=== PATIENT | female | born 1945 | race Caucasian/White ===

== ENCOUNTER 2024-02-09 09:54 | Emergency (ER) | payer MEDICARE, OTHER, SELFPAY ==
[2024-02-09] VITALS (8 sets, daily range): BP systolic 103–136; BP diastolic 59–90; BMI 26.3
--- NOTE | 2024-02-09 10:28 | ED.GENMED ---
History of Present Illness
<Simin Stern MD - Last Filed: 02/09/24 14:20>
General
Chief Complaint: Fall
Source: patient
Exam Limitations: none
Time Seen by Provider: 02/09/24 10:03
Nursing documentation reviewed up to this point in time: agreed with
History of Present Illness
History of Present Illness:
The patient is a pleasant 78-year-old female with a past medical history of COPD who reports that she woke up to get milk in the middle of the night and slipped down a steep carpeted staircase. She is unsure how many steps she fell down. Patient
reports that she believes she hit her head and hit her right side. Her was downstairs sleeping and was able to help her get up off the ground. The patient denies nausea and vomiting. She reports mild soreness at the base of her head but
denies any significant headache. She has no vision changes. She denies neck pain. She has had no tingling of the arms and legs. She has been able to walk. Patient complains of moderate pain along her right rib cage. She denies abdominal pain.
Patient also suffered skin tears to the right forearm area. She reports a tetanus shot was given to her about 2 years ago. She denies blood in her urine and stool.
Past History
<Simin Stern MD - Last Filed: 02/09/24 14:20>
Past History
ED Past Medical History: COPD, HTN and Hypercholesterolemia
ED Past Surgical History: Other
Social History
Tobacco: Other
Alcohol: Other
Drug: None
Personal:
Living: with family
Employment: Other
Family History
Family History: Other
Review of Systems
<Simin Stern MD - Last Filed: 02/09/24 14:20>
Review of Systems
Allergies reviewed?: Yes
All Other Systems: ROS reviewed and negative except as documented in HPI and ROS
Constitutional: Reports no symptoms
EENT: Reports no symptoms
Respiratory: Reports no symptoms
Cardiac: Reports chest pain
ABD/GI: Reports no symptoms
: Reports no symptoms
Musculoskeletal: Reports muscle pain
Skin: Reports other
Neurological: Reports no symptoms
Endocrine: Reports no symptoms
Hematologic/Lymphatic: Reports no symptoms
Psychiatric: Reports no symptoms
Phy Exam
<Simin Stern MD - Last Filed: 02/09/24 14:20>
Physical Exam
Physical Exam:
Physical Exam
General: no apparent distress, not acutely ill. Mild confusion this typical scalp area.
Neck: supple. No C-spine tenderness
Heart: s1/s2 regular rate and rhythm, no murmur. equal radial pulses. No vertebral spine tenderness
Lungs: no acute respiratory distress. clear bilaterally. Tenderness along right posterior lateral rib cage area. No sign of ecchymosis or deformity
Abdomen: normal bowel sounds. not tender. no CVAT. Abdomen is soft and nontender throughout, no flank tenderness
Neuro: alert and oriented. no focal neurological deficits
Skin: Skin tears right upper arm and right forearm. Bleeding well-controlled
Psychiatric: well kept. interactive and cooperative
Extremities: No bony tenderness of upper or lower extremities, including right upper extremity
Course
<Simin Stern MD - Last Filed: 02/09/24 14:20>
Orders/Labs/Results
Orders:
Orders
02/09/24 10:26
CT Head W/o Iv Contrast Urgent
Comment:
Reason For Exam: fell down steps
Ribs, Right 3 View W/PA Chest [CR Ribs-right 3 Vw W/pa Chest*] Urgent
Comment:
Reason For Exam: fell down steps, R post-lat lower ribcage pain
02/09/24 10:28
Electrocardiogram (*1) Urgent
Reason for Study: Shortness of Breath
EKG- Treatment ONCE
02/09/24 10:34
Complete Blood Count/With Diff Urgent
Comprehensive Metabolic Panel Urgent
02/09/24 11:46
Morphine Sulfate 4 mg IV NOW STA
02/09/24 11:47
Ondansetron Injectable [Zofran] 4 mg IV NOW STA
02/09/24 11:49
Troponin I Urgent
02/09/24 14:24
Tramadol HCl [Ultram] 50 mg PO NOW STA
02/09/24 16:30
CT Head W/o Iv Contrast Urgent
Comment:
Reason For Exam: fall, repeat
02/09/24 18:05
Acetaminophen [Tylenol] 1,000 mg PO NOW STA
Abnormal Lab Results
02/09/24
10:34
RBC 4.07 L 10^6/uL
(4.20-5.40)
Hct 36.5 L %
(37.0-47.0)
MCH 32.4 H pg
(27.0-31.0)
RDW 11.4 L %
(11.5-14.5)
Abs Immat Gran (auto) 0.1 H 10^3/uL
(0-0.05)
Absolute Neuts (auto) 7.7 H 10^3/uL
(1.4-6.5)
Absolute Monos (auto) 0.7 H 10^3/uL
(0.1-0.6)
Neutrophils % 78.1 H %
(42.2-75.2)
Lymphocytes % 12.8 L %
(20.5-51.1)
Glucose 129 H mg/dl
(70-99)
AST 102 H U/L
(14-36)
ALT 84 H U/L
(0-35)
02/09/24 10:34
02/09/24 10:34
Vital Signs
Initial and Last Documented VS:
Initial Vital Signs
Temp Pulse Resp Pulse Ox
97.7 F 79 16 98
02/09/24 09:55 02/09/24 09:55 02/09/24 09:55 02/09/24 09:55
Last Documented Vital Signs
Temp Pulse Resp BP Pulse Ox
97.7 F 71 16 129/74 98
02/09/24 09:55 02/09/24 18:34 02/09/24 18:34 02/09/24 18:34 02/09/24 18:34
<Jered Angulo, DO - Last Filed: 02/11/24 03:38>
Orders/Labs/Results
Orders:
Orders
02/09/24 10:26
CT Head W/o Iv Contrast Urgent
Comment:
Reason For Exam: fell down steps
Ribs, Right 3 View W/PA Chest [CR Ribs-right 3 Vw W/pa Chest*] Urgent
Comment:
Reason For Exam: fell down steps, R post-lat lower ribcage pain
02/09/24 10:28
Electrocardiogram (*1) Urgent
Reason for Study: Shortness of Breath
EKG- Treatment ONCE
02/09/24 10:34
Complete Blood Count/With Diff Urgent
Comprehensive Metabolic Panel Urgent
02/09/24 11:46
Morphine Sulfate 4 mg IV NOW STA
02/09/24 11:47
Ondansetron Injectable [Zofran] 4 mg IV NOW STA
02/09/24 11:49
Troponin I Urgent
02/09/24 14:24
Tramadol HCl [Ultram] 50 mg PO NOW STA
02/09/24 16:30
CT Head W/o Iv Contrast Urgent
Comment:
Reason For Exam: fall, repeat
02/09/24 18:05
Acetaminophen [Tylenol] 1,000 mg PO NOW STA
Abnormal Lab Results
02/09/24
10:34
RBC 4.07 L 10^6/uL
(4.20-5.40)
Hct 36.5 L %
(37.0-47.0)
MCH 32.4 H pg
(27.0-31.0)
RDW 11.4 L %
(11.5-14.5)
Abs Immat Gran (auto) 0.1 H 10^3/uL
(0-0.05)
Absolute Neuts (auto) 7.7 H 10^3/uL
(1.4-6.5)
Absolute Monos (auto) 0.7 H 10^3/uL
(0.1-0.6)
Neutrophils % 78.1 H %
(42.2-75.2)
Lymphocytes % 12.8 L %
(20.5-51.1)
Glucose 129 H mg/dl
(70-99)
AST 102 H U/L
(14-36)
ALT 84 H U/L
(0-35)
02/09/24 10:34
02/09/24 10:34
Vital Signs
Initial and Last Documented VS:
Initial Vital Signs
Temp Pulse Resp Pulse Ox
97.7 F 79 16 98
02/09/24 09:55 02/09/24 09:55 02/09/24 09:55 02/09/24 09:55
Last Documented Vital Signs
Temp Pulse Resp BP Pulse Ox
97.7 F 71 16 129/74 98
02/09/24 09:55 02/09/24 18:34 02/09/24 18:34 02/09/24 18:34 02/09/24 18:34
<Simin Stern MD - Last Filed: 02/09/24 14:20>
MDM/Problems Addressed
Differential Diagnosis Includes:
Closed head injury, intracranial hematoma, rib fracture, rib contusion
MDM/Problems Addressed:
Patient presents with acute mild scalp tenderness and right rib cage pain after falling down steps
Chronic conditions affecting care:
COPD, hypertension
Acute Exacerbation and/or Progression of Chronic Illness:
Patient is slightly hypertensive, however, there is no sign of heart failure or stroke. Patient's blood pressure may be elevated due to pain.
Acute Exacerbation and/or Progression of Chronic Illness: HTN
<Simin Stern MD - Last Filed: 02/09/24 14:20>
*Radiology
Radiology exam reviewed: preliminary read by ED provider (Chest x-ray and right rib series reviewed by me. No acute disease or fracture seen) and radiology read reviewed
*Pulse Oximetry
Patient hypoxic: no
*EKG
Interpreted by ED Provider?: Yes
Interpretation: abnormal
Comparison EKG: no comparison EKG present
Rate: normal
Rhythm: sinus
Rule: normal axis
Interval: normal interval
QRS Pattern: normal QRS
Ischemia: non-specific ST changes
*[employer] Splitter Operator Interpretation
Rate: normal
Interpretation: normal
Rhythm: sinus
Data Reviewed
Review of Other/Old Records Reveals: Radiology Studies (Chest x-ray reviewed from 02/2023 which shows no acute disease)
Source: patient
<Jered Angulo DO - Last Filed: 02/11/24 03:38>
*Critical Care Note
Total Time (30-74mins, 75-104mins- exclusive of procedures): Not Applicable
<Simin Stern MD - Last Filed: 02/09/24 14:20>
Patient Management
Discussion with other providers: Other (Discussed initial CT head with Dr. Scott from neurosurgery. Recommended that we repeat CT head in 6 hours.)
<Jered Angulo DO - Last Filed: 02/11/24 03:38>
Update Note
Update Note:
6 PM after an ER attending signout pending repeat CAT scan repeat scan noted reviewed with patient, she looks well mild headache which is aching today, I believe she can safely be discharged home, message sent to neurosurgery to review. She is on
no blood thinners, no progression of her bleed
ED Attending Note
<Simin Stern MD - Last Filed: 02/09/24 14:20>
-
Portions of this chart may have been created with voice recognition software.� Occasional wrong word or��sound alike� substitutions may have occurred due to the inherent limitations of voice recognition software.
Discharge Plan
Departure
Patient Disposition: Home (Routine Discharge)
Date of Disposition: 02/09/24
Time of Disposition: 18:09
Patient with high blood pressure during this ER visit?: Yes
Condition: Good
Covid-19: Not Applicable
Discharge Problem:
Contusion of rib on right side
Instructions: Concussion, Adult (DC), Bruised Rib (DC), BLOOD PRESSURE
Prescriptions:
New
tramadol 25 mg tablet
25 mg PO Q6H PRN (Reason: Pain) Qty: 10 0RF
ondansetron 4 mg tablet,disintegrating
4 mg PO TIDPRN PRN (Reason: nausea/vomiting) Qty: 10 0RF
tramadol 25 mg tablet
25 mg PO Q4H PRN (Reason: Pain) Qty: 10 0RF
Referrals:
Mckenna Ronquillo MD [Active] - Next open appointment
Dante Rodriguez MD [Family Provider] -
Activity Restrictions/Additional Instructions:
Please return to the emergency department with any fever or difficulty breathing. Please see your doctor in 2 to 3 days to be rechecked
Interventions
Interventions:
*Risk Screen - Suicide Last Done: 02/09/24 18:35
*General Assessment Last Done: 02/09/24 13:41
*Neglect/Abuse Screening Last Done: 02/09/24 13:41
*ED COVID-19 Vaccine History Last Done: 02/09/24 09:55
*Nursing Disposition Last Done: 02/09/24 18:35
ED-Musculoskeletal Assessment Last Done: 02/09/24 10:20
ED- Neurological Assessment Last Done: 02/09/24 10:20
ED-Skin Assessment Last Done: 02/09/24 10:20
Discharge Date and Time
Discharge Date/Time: 02/09/24 18:36
Print Language: AMHARIC
[2024-02-09 10:43] LABS: % Basophils 0.2 % (0-2); % Eosinophils 1.1 % (0-6); % Immature Granulocytes 0.5 % (0-0.5); % Lymphocytes 12.8 % (20.5-51.1); % Monocytes 7.3 % (1.7-9.3); % Neutrophils 78.1 % (42.2-75.2); Absolute Eosinophils 0.1 10^3/uL (0-0.7); Absolute Immature Granulocytes 0.1 10^3/uL (0-0.05); Absolute Lymphocytes 1.3 10^3/uL (1.2-3.4); Absolute Monocytes 0.7 10^3/uL (0.1-0.6); Absolute Neutrophils 7.7 10^3/uL (1.4-6.5); Hematocrit 36.5 % (37.0-47.0); Hemoglobin 13.2 g/dL (12.0-16.0); Mean Corp Hgb Conc. 36.2 g/dL (33.0-37.0); Mean Corpuscular Hgb 32.4 pg (27.0-31.0); Mean Corpuscular Volume 89.7 fL (81.0-99.0); Mean Platelet Volume 10.1 fL (7.4-10.4); Nucleated Red Blood Cells % 0 %; Platelet Count 283 10^3/uL (130-400); Red Blood Cell Count 4.07 10^6/uL (4.20-5.40); Red Cell Dist. Width 11.4 % (11.5-14.5); White Blood Cell Count 9.9 10^3/uL (4.8-10.8)
[2024-02-09 10:58] LABS: ALT (SGPT) 84 U/L (0-35); AST (SGOT) 102 U/L (14-36); Albumin 4.6 g/dl (3.5-5.0); Alkaline Phosphatase 57 U/L (38-126); Blood Urea Nitrogen 15 mg/dl (7-17); Carbon Dioxide 24 mmol/L (22-30); Chloride 99 mmol/L (98-107); Estimated Creatinine Clearance 57 ml/min; Glucose 129 mg/dl (70-99); Potassium 3.9 mmol/L (3.5-5.1); Sodium 135 mmol/L (135-145); Total Bilirubin 0.9 mg/dl (0.2-1.3); Total Protein 6.7 g/dl (6.3-8.2); eGFR > 60.00
[2024-02-09] MEDS: MORPHINE SULFATE 4 MG IV (11:51)
[2024-02-09] MEDS: ZOFRAN 4 MG IV (11:51)
[2024-02-09 12:18] LABS: Troponin I < 0.012 ng/ml
[2024-02-09] MEDS: ULTRAM 50 MG PO (14:27)
[2024-02-09] MEDS: TYLENOL 1000 MG PO (18:34)
== END 2024-02-09 18:36 | disposition home or self-care (01) ==
LOC: EMR 09:54
PROVIDERS: Emergency Medicine; EMERGENCY PHYSICIAN Emergency Medicine; FAMILY PHYSICIAN Internal Medicine
DX: S00.03XA Contusion of scalp, initial encounter (principal); W10.9XXA Fall (on) (from) unspecified stairs and steps, initial encounter; J44.9 Chronic obstructive pulmonary disease, unspecified; I10 Essential (primary) hypertension; E78.00 Pure hypercholesterolemia, unspecified
CPT/HCPCS: 99284; 96374; 96375; 70450; 71101; 80053; 84484; 85025; 93005

== ENCOUNTER 2024-09-17 10:09 | Inpatient (IN) | payer MEDICARE, OTHER, SELFPAY ==
[2024-09-15 12:15] VITALS: BP 112/79
[2024-09-15 12:49] LABS: % Basophils 0.2 % (0-2); % Eosinophils 0.2 % (0-6); % Immature Granulocytes 0.4 % (0-0.5); % Lymphocytes 4.2 % (20.5-51.1); % Monocytes 4.2 % (1.7-9.3); % Neutrophils 90.8 % (42.2-75.2); Absolute Immature Granulocytes 0.1 10^3/uL (0-0.05); Absolute Lymphocytes 0.6 10^3/uL (1.2-3.4); Absolute Monocytes 0.6 10^3/uL (0.1-0.6); Absolute Neutrophils 12.7 10^3/uL (1.4-6.5); Hemoglobin 14.5 g/dL (12.0-16.0); Mean Corp Hgb Conc. 33.7 g/dL (33.0-37.0); Mean Corpuscular Hgb 32.2 pg (27.0-31.0); Mean Corpuscular Volume 95.3 fL (81.0-99.0); Mean Platelet Volume 10.2 fL (7.4-10.4); Nucleated Red Blood Cells % 0 %; Platelet Count 317 10^3/uL (130-400); Red Blood Cell Count 4.51 10^6/uL (4.20-5.40); Red Cell Dist. Width 11.9 % (11.5-14.5)
[2024-09-15 12:59] LABS: ALT (SGPT) 28 U/L (0-35); AST (SGOT) 28 U/L (14-36); Albumin 4.6 g/dl (3.5-5.0); Alkaline Phosphatase 55 U/L (38-126); Blood Urea Nitrogen 14 mg/dl (7-17); Calcium 10.1 mg/dl (8.4-10.2); Carbon Dioxide 26 mmol/L (22-30); Chloride 101 mmol/L (98-107); Glucose 142 mg/dl (70-99); Lipase 190 U/L (23-300); Potassium 4.1 mmol/L (3.5-5.1); Sodium 138 mmol/L (135-145); Total Bilirubin 0.8 mg/dl (0.2-1.3); Total Protein 6.6 g/dl (6.3-8.2); eGFR > 60.00
[2024-09-15 13:50] VITALS: BP 122/64
--- NOTE | 2024-09-15 14:09 | EDRN ---
Pt reporting increased abdominal pain. [employer] MANAGER Day made aware and patient brought to triage lab for evaluation.
--- NOTE | 2024-09-15 14:10 | ED.GENMED ---
ED Provider Triage
<Portia Garcia INSPECTOR MACHINE CUT GLASS - Last Filed: 09/15/24 14:13>
-
Patient seen by provider in Triage?: Seen in Triage
Attestation: A medical screening examination has been initiated by a qualified medical provider. Based on the assessment performed at this time, it has been determined that an emergent medical condition may exist and the patient has been informed
that further medical evaluation and possible additional diagnostic testing may be needed.
HPI: 79-year-old female with history of HTN, smoker with COPD, diagnosed with RSV 2 weeks ago. Patient states she developed sudden onset of pain across her lower abdomen in the middle the night which woke her up. Pain is 10 out of 10. Vomited
once this morning. Denies diarrhea or constipation. Had a normal bowel movement yesterday. Denies fever or chills.
GENERAL: Alert , in no apparent distress
EYE: No visual abnormalities.
NECK: Trachea midline
ENT: No visible abnormalities.
LUNGS: No acute respiratory distress
NEUROLOGICAL: Alert and oriented
SKIN: Skin intact. No visible changes.
MUSCULOSKELETAL: Moving extremities normally
PSYCH: Normal and appropriate interaction.
This is a medical evaluation conducted in person to initiate diagnostic evaluation and provide initial therapeutics. Please see further documentation by the treating clinician.
History of Present Illness
<Portia Garcia INSPECTOR MACHINE CUT GLASS - Last Filed: 09/15/24 14:13>
General
Chief Complaint: Abdominal Pain
Time Seen by Provider: 09/15/24 15:24
<Rosalina Lala PA-C - Last Filed: 09/16/24 00:26>
General
Source: patient
Exam Limitations: none
Nursing documentation reviewed up to this point in time: agreed with
History of Present Illness
History of Present Illness:
Patient is a 79-year-old female with history COPD, hypertension, hyperlipidemia presenting to the emergency department for evaluation of abdominal pain. Patient states pain woke her up from sleep in the middle the night last night and has been
constant since. She describes a sharp, stabbing pain across her entire lower abdomen and states it feels like 'she is being sold in half '. Patient denies any radiation into her groin or into her back. She did have 1 episode of vomiting this
morning and mild nausea. No diarrhea/constipation. No dysuria or hematuria. No chest pain or shortness of breath.
Patient denies any history of abdominal surgeries or similar symptoms in the past.
She does have a remote history of a kidney stone although states this feels very different.
Past History
<Portia Garcia INSPECTOR MACHINE CUT GLASS - Last Filed: 09/15/24 14:13>
Past History
ED Past Medical History: COPD, HTN and Hypercholesterolemia
ED Past Surgical History: Other
Social History
Tobacco: Other
Alcohol: Other
Drug: None
Personal:
Living: with family
Employment: Other
Family History
Family History: Other
Review of Systems
<Rosalina Lala PA-C - Last Filed: 09/16/24 00:26>
Review of Systems
Allergies reviewed?: Yes
All Other Systems: ROS reviewed and negative except as documented in HPI and ROS
Phy Exam
<Rosalina Lala PA-C - Last Filed: 09/16/24 00:26>
Physical Exam
Physical Exam:
Vitals: Patient's vital signs are stable. Afebrile
General: Mild distress
Skin: Warm and dry, no rashes or lesions
Head: Normocephalic, atraumatic
Eyes: Sclera nonicteric. EOMs intact. No nystagmus.
Throat: Protecting airway
Neck: Normal ROM, no cervical spine tenderness, no meningismus
Cardiac: Regular rate and rhythm, no murmurs.
Pulm: Normal respiratory effort, no wheezes, rales, rhonchi heard on exam.
Abdomen: Abdomen soft. Moderate abdominal tenderness in lower abdomen, somewhat worse in right lower quadrant with voluntary guarding. No rebound tenderness. No CVA tenderness
Extremities: No evidence of cyanosis or edema. Palpable distal pulses
Neuro: AAOx3. Grossly intact.
Psychiatric: Normal affect.
Course
<Portia V. Day, INSPECTOR MACHINE C[employer]ASS - Last Filed: 09/15/24 14:13>
Orders/Labs/Results
Orders:
Orders
09/15/24 12:22
Alcohol Urgent
Complete Blood Count/With Diff Urgent
Comprehensive Metabolic Panel Urgent
Lipase Urgent
09/15/24 14:12
CT Abd/Pel (IV only)-DH only Urgent
Comment:
Reason For Exam: pain across lower abdomen
09/15/24 14:13
Urinalysis Reflex To Culture Urgent
09/15/24 Dinner
NPO
Allow oral meds: Yes
Allow clear liquids: No
NPO with Ice Chips: Yes
NPO for procedure after (time): 0000 09/16/99
Comment: ice chips until midnight
09/15/24 15:41
Electrocardiogram (*1) Urgent
Reason for Study: Abdominal Pain
EKG- Treatment ONCE
0.9% Sodium Chloride 1000 ml [Nss] 1,000 ml IV BOLUS
HYDROmorphone [Dilaudid] 0.5 mg IV NOW STA
Ondansetron Injectable [Zofran] 4 mg IV NOW STA
09/15/24 17:11
Piperacillin/Tazo 3.375 Gram [Zosyn] 3.375 gram in 50 ml IV NOW
09/15/24 17:30
Lactic Acid Urgent
09/15/24 19:17
HYDROmorphone [Dilaudid] 0.5 mg IV NOW STA
09/15/24 19:21
Admit/Transfer Patient As Directed
Co-Sign Provider:
Level of Care: Observation services
Assign to:: Medical/Surgical
Physician / Group: dr Vann
Diagnosis: acute appendicites
09/15/24 19:22
Code Status As Directed
Resuscitation Status: Full Code
PRN Pain Medication Management As Directed
May give lesser potent ordered pain med per pt: Yes
preference::
Protocol:: Medication orders for pain may be administered in a
manner that supports deferring to patient preference
when the pt is:
- Requesting an ordered lesser potent pain medication.
Least to most potent pain medications are defined
as: acetaminophen < NSAID < tramadol < opioids
(morphine, oxycodone, hydromorphone).
- Requesting a lesser dose of the same medication IF
ORDERED.
- Requesting a less intrusive route of administration
if both routes are prescribed by the provider (PO <
IV).
09/15/24 21:35
0.9% Sodium Chloride 1000 ml [Nss] 1,000 ml IV 100 mls/hr
Albuterol [ProAIR HFA INHALER] 2 puff INH R Q6HPRN PRN
09/15/24 21:35
Activity As Directed
Activity Level: Out of Bed-Early Mobility
Anti-embolism (MARINA) Hose As Directed
Type: Thigh high
Intake/ Output As Directed
Frequency: Per unit guidelines
Pneumatic Compression Sleeves As Directed
Type: Thigh high
Vital Signs As Directed
Frequency: Per unit guidelines
Rx Incentive Spirometry [RESP] Routine
Frequency: q1h while awake
# of times per hour: 10
DX Deep Vein Thrombosis Video Routine
09/16/24 00:00
Piperacillin/Tazo 3.375 Gram [Zosyn] 3.375 gram in 50 ml IV Q6H
09/16/24 08:00
Amlodipine [Norvasc] 10 mg PO DAILY
Atorvastatin [Lipitor] 80 mg PO DAILY
Bupropion(24Hr)Extended Releas [WELLBUTRIN XL (24 hour extended release)] 300 mg PO DAILY
Fenofibrate 145 [Tricor] 145 mg PO DAILY
Pantoprazole [Protonix] 40 mg PO DAILY
Tiotropium [place] 2.5 Mcg [Spiriva Respimat 2.5 Mcg] 2 puff INH R DAILY
Abnormal Lab Results
09/15/24 09/15/24
12:22 17:30
WBC 14.0 H 10^3/uL
(4.8-10.8)
MCH 32.2 H pg
(27.0-31.0)
Abs Immat Gran (auto) 0.1 H 10^3/uL
(0-0.05)
Absolute Neuts (auto) 12.7 H 10^3/uL
(1.4-6.5)
Absolute Lymphs (auto) 0.6 L 10^3/uL
(1.2-3.4)
Neutrophils % 90.8 H %
(42.2-75.2)
Lymphocytes % 4.2 L %
(20.5-51.1)
Glucose 142 H mg/dl
(70-99)
Lactic Acid 2.1 H mmol/L
(0.7-2.0)
09/15/24 12:22
09/15/24 12:22
Vital Signs
Initial and Last Documented VS:
Initial Vital Signs
Temp Pulse Resp BP Pulse Ox
99.1 F 97 18 112/79 97
09/15/24 12:15 09/15/24 12:15 09/15/24 12:15 09/15/24 12:15 09/15/24 12:15
Last Documented Vital Signs
Temp Pulse Resp BP Pulse Ox
98.1 F 90 16 115/68 93
09/15/24 23:36 09/15/24 23:36 09/15/24 23:36 09/15/24 23:36 09/15/24 23:36
<Rosalina Lala PA-C - Last Filed: 09/16/24 00:26>
Orders/Labs/Results
Orders:
Orders
09/15/24 12:22
Alcohol Urgent
Complete Blood Count/With Diff Urgent
Comprehensive Metabolic Panel Urgent
Lipase Urgent
09/15/24 14:12
CT Abd/Pel (IV only)-[facility] only Urgent
Comment:
Reason For Exam: pain across lower abdomen
09/15/24 14:13
Urinalysis Reflex To Culture Urgent
09/15/24 Dinner
NPO
Allow oral meds: Yes
Allow clear liquids: No
NPO with Ice Chips: Yes
NPO for procedure after (time): 0000 09/16/99
Comment: ice chips until midnight
09/15/24 15:41
Electrocardiogram (*1) Urgent
Reason for Study: Abdominal Pain
EKG- Treatment ONCE
0.9% Sodium Chloride 1000 ml [Nss] 1,000 ml IV BOLUS
HYDROmorphone [Dilaudid] 0.5 mg IV NOW STA
Ondansetron Injectable [Zofran] 4 mg IV NOW STA
09/15/24 17:11
Piperacillin/Tazo 3.375 Gram [Zosyn] 3.375 gram in 50 ml IV NOW
09/15/24 17:30
Lactic Acid Urgent
09/15/24 19:17
HYDROmorphone [Dilaudid] 0.5 mg IV NOW STA
09/15/24 19:21
Admit/Transfer Patient As Directed
Co-Sign Provider:
Level of Care: Observation services
Assign to:: Medical/Surgical
Physician / Group: dr Vann
Diagnosis: acute appendicites
09/15/24 19:22
Code Status As Directed
Resuscitation Status: Full Code
PRN Pain Medication Management As Directed
May give lesser potent ordered pain med per pt: Yes
preference::
Protocol:: Medication orders for pain may be administered in a
manner that supports deferring to patient preference
when the pt is:
- Requesting an ordered lesser potent pain medication.
Least to most potent pain medications are defined
as: acetaminophen < NSAID < tramadol < opioids
(morphine, oxycodone, hydromorphone).
- Requesting a lesser dose of the same medication IF
ORDERED.
- Requesting a less intrusive route of administration
if both routes are prescribed by the provider (PO <
IV).
09/15/24 21:35
0.9% Sodium Chloride 1000 ml [Nss] 1,000 ml IV 100 mls/hr
Albuterol [ProAIR HFA INHALER] 2 puff INH R Q6HPRN PRN
09/15/24 21:35
Activity As Directed
Activity Level: Out of Bed-Early Mobility
Anti-embolism (MARINA) Hose As Directed
Type: Thigh high
Intake/ Output As Directed
Frequency: Per unit guidelines
Pneumatic Compression Sleeves As Directed
Type: Thigh high
Vital Signs As Directed
Frequency: Per unit guidelines
Rx Incentive Spirometry [RESP] Routine
Frequency: q1h while awake
# of times per hour: 10
DX Deep Vein Thrombosis Video Routine
09/16/24 00:00
Piperacillin/Tazo 3.375 Gram [Zosyn] 3.375 gram in 50 ml IV Q6H
09/16/24 08:00
Amlodipine [Norvasc] 10 mg PO DAILY
Atorvastatin [Lipitor] 80 mg PO DAILY
Bupropion(24Hr)Extended Releas [WELLBUTRIN XL (24 hour extended release)] 300 mg PO DAILY
Fenofibrate 145 [Tricor] 145 mg PO DAILY
Pantoprazole [Protonix] 40 mg PO DAILY
Tiotropium [place] 2.5 Mcg [Spiriva Respimat 2.5 Mcg] 2 puff INH R DAILY
Abnormal Lab Results
09/15/24 09/15/24
12:22 17:30
WBC 14.0 H 10^3/uL
(4.8-10.8)
MCH 32.2 H pg
(27.0-31.0)
Abs Immat Gran (auto) 0.1 H 10^3/uL
(0-0.05)
Absolute Neuts (auto) 12.7 H 10^3/uL
(1.4-6.5)
Absolute Lymphs (auto) 0.6 L 10^3/uL
(1.2-3.4)
Neutrophils % 90.8 H %
(42.2-75.2)
Lymphocytes % 4.2 L %
(20.5-51.1)
Glucose 142 H mg/dl
(70-99)
Lactic Acid 2.1 H mmol/L
(0.7-2.0)
09/15/24 12:22
09/15/24 12:22
Vital Signs
Initial and Last Documented VS:
Initial Vital Signs
Temp Pulse Resp BP Pulse Ox
99.1 F 97 18 112/79 97
09/15/24 12:15 09/15/24 12:15 09/15/24 12:15 09/15/24 12:15 09/15/24 12:15
Last Documented Vital Signs
Temp Pulse Resp BP Pulse Ox
98.1 F 90 16 115/68 93
09/15/24 23:36 09/15/24 23:36 09/15/24 23:36 09/15/24 23:36 09/15/24 23:36
<Rosalina Lala PA-C - Last Filed: 09/16/24 00:26>
MDM/Problems Addressed
Differential Diagnosis Includes:
Not limited to: Appendicitis, diverticulitis, cholecystitis, pancreatitis, kidney stone, pyelonephritis, constipation, etc.
MDM/Problems Addressed:
79-year-old female with acute onset lower abdominal pain this morning associated with nausea and an episode of vomiting. No fever or chills. No diarrhea, constipation, or urinary symptoms. Patient afebrile with stable vital signs on arrival.
Physical exam as above. Abdomen is soft with moderate abdominal tenderness in lower abdomen, no significant right lower quadrant with voluntary guarding. No rebound tenderness or CVA tenderness. Given patient's significant tenderness on
exam�concern for possible intra-abdominal infection, appendicitis vs diverticulitis vs other. Labs initiated in triage significant for leukocytosis of 14,000 otherwise no clinically significant abnormalities. Will check CT abdomen/pelvis with IV
contrast. Will give IV fluids and treat pain. Will check urinalysis. Will closely monitor and reassess.
Update 5 PM: CT report reviewed with findings consistent with acute appendicitis. This was discussed with general surgeon on-call who will plan for OR tomorrow. Zosyn initiated in emergency department. . Patient admitted to general surgery
service in stable condition. Plan for n.p.o., IV fluids, OR tomorrow with general surgery
Chronic conditions affecting care:
N/A
Acute Exacerbation and/or Progression of Chronic Illness:
Acute appendicitis
<Rosalina Lala PA-C - Last Filed: 09/16/24 00:26>
*Radiology
Radiology exam reviewed: radiology read reviewed (Acute appendicitis)
*Pulse Oximetry
Patient hypoxic: no
*EKG
Interpreted by ED Provider?: Yes
EKG Intrepretation Date: 09/15/24
Interpretation: abnormal
Comparison EKG: changes noted
Heart Rate: 93
Rate: normal
Rhythm: sinus and PVC's
[place]: normal axis
Interval: normal QT interval
QRS Pattern: normal QRS
Ischemia: non-specific ST changes
*Career Services Manager Interpretation
Rate: Career Services Manager- N/A
*Critical Care Note
Total Time (30-74mins, 75-104mins- exclusive of procedures): Not Applicable
<Rosalina Lala PA-C - Last Filed: 09/16/24 00:26>
Patient Management
Discussion with other providers: Pit Tanner (General Surgery-Dr. Vann)
Escalation/DeEscalation of care consider admission/obs:
Acute appendicitis�admit to general surgery service�plan for OR tomorrow
ED Attending Note
<Portia Garcia NP - Last Filed: 09/15/24 14:13>
-
Portions of this chart may have been created with voice recognition software.� Occasional wrong word or��sound alike� substitutions may have occurred due to the inherent limitations of voice recognition software.
Discharge Plan
Departure
Patient Disposition: Admit
Date of Disposition: 09/15/24
Time of Disposition: 17:24
Admit to doctor: Dr. Vann
Presentation/result/management discussed w/ accepting MD/DO: Surgery
Discharge Problem:
Acute appendicitis
Interventions
Interventions:
*Risk Screen - Suicide Last Done: 09/15/24 12:18
*General Assessment Last Done: 09/15/24 12:18
*Neglect/Abuse Screening Last Done: 09/15/24 12:18
ED- Fall Risk Assessment Last Done: 09/15/24 20:12
*ED COVID-19 Vaccine History Last Done: 09/15/24 15:59
*Nursing Disposition Last Done: 09/15/24 21:44
QO-Qqdpxe-Oiqoseghma Assessment Last Done: 09/15/24 20:12
ED-EENT Assessment Last Done: 09/15/24 15:59
Discharge Date and Time
Discharge Date/Time: 09/15/24 21:45
[2024-09-15] MEDS: DILAUDID 0.5 MG IV ×2 (15:46→20:06)
[2024-09-15] MEDS: ZOFRAN 4 MG IV (15:46)
[2024-09-15] MEDS: NSS 1000 IV ×2 (15:46→22:41)
[2024-09-15 16:02] VITALS: BP 133/66
[2024-09-15] MEDS: ZOSYN 50 IV (17:18)
[2024-09-15 17:52] LABS: Lactic Acid 2.1 mmol/L (0.7-2.0)
--- NOTE | 2024-09-15 18:38 | W.PN.UPDATE ---
Update Note
Progress Note Update
CT Reviewed. Acute appendicitis with significant stranding in the RLQ. There is some possible adjacent pneumatosis in the cecum but the ICA branches feeding the colon are wide open and there is no PVG. vitals stable, pain controlled and exam
reported as non-peritonitic.
Admit to surgery, plan for OR tomorrow
NPO, IVFs, Zosyn
Trend lactate, CBC, BMP. If lactate rises please TT me. I expect the lacate will normalize with resuscitation
[2024-09-15 20:12] VITALS: BP 116/52
--- NOTE | 2024-09-15 20:27 | HPS.HSE ---
Addendum entered and electronically signed by Vamshi Tovar MD 09/16/24 13:25:
I saw and examined the patient.
The Radio Repairman's note was reviewed and I agree with the note.
Comment: Abd pain persists. Pt has a hard time localizing it, sometimes RLQ, sometimes LLQ. ttp on exam mainly to rlq. AFVSS, mild leukocytosis. CT c/w acute appendicitis with fecalith, pneumatosis of cecum is noted. Plan for lap appy, discussed
the possibility if cecum appears compromised would likely progress to lower midline incision and ileo-cecectomy. OCTOR
Original Note:
Family Physician
-
Family Physician: Ade Flores DO
Chief Complaint
-
abd pain
History of Present Illness
79-year-old female with history COPD, hypertension, hyperlipidemia,arthritis presenting to the emergency department for evaluation of abdominal pain. Patient states pain woke her up from sleep in the middle the night last night and has been
constant since. She describes a sharp, stabbing pain across her entire lower abdomen. Patient denies any radiation into her groin or into her back. She did have 1 episode of vomiting this morning and mild nausea. No diarrhea/constipation. No
dysuria or hematuria. No chest pain or shortness of breath.
Patient denies any history of abdominal surgeries or similar symptoms in the past.
She does have a remote (50yrs ago) history of a kidney stone although states this feels very different.
CT abd:The appendix is identified in the anterior right upper pelvis. The appendix is enlarged measuring up to 9.2 mm in diameter, and has an enhancing slightly thickened wall. There is ill-defined edema adjacent to the appendix and extending into
the adjacent mesenteric fat, as well as edema more posteriorly along the anterior margin of the psoas muscle. Findings are highly suggestive of appendicitis. The adjacent edema compatible with reactive edema suggests the possibility of
microperforation, but with no focal abscess.
WBC 14.0 left shift
Medical History
Past Medical History
Past Medical History: Reports COPD, GERD, HTN, Hypercholesterolemia and Other (arthritis, kidney stone)
Past Surgical History: Reports Urological (kidney stone removal 50 yrs ago)
Social History
Tobacco: Smoker (1/2 ppd)
Alcohol: Daily (1-2 glasses wine nightly. Denies previous withdrawal hx )
Drug: None
Personal:
Living: With Family
Employment: Retired
Family History
Family History: Not pertinent
Allergies / Home Medications
Allergies reflects when Allergies were last updated in [employer].
Home Medications with original date entered in [employer]
Allergy/Medication List:
Allergies
Allergy/AdvReac Type Severity Reaction Status Date / Time
lisinopril Allergy Severe Swelling Verified 09/15/24 12:15
Home Medications
albuterol sulfate 90 mcg/actuation aerosol inhaler 2 puff inhalation R Q6HPRN PRN sob 09/15/24
amlodipine 10 mg tablet (Norvasc) 10 mg PO DAILY 09/15/24
atorvastatin 80 mg tablet (Lipitor) 80 mg PO DAILY 09/15/24
bupropion HCl 300 mg 24 hr tablet, extended release (Wellbutrin XL) 300 mg PO DAILY 09/15/24
fenofibrate nanocrystallized 145 mg tablet (Tricor) 145 mg PO DAILY 09/15/24
meloxicam 15 mg tablet 15 mg PO DAILY 09/15/24
omeprazole 20 mg tablet,delayed release 20 mg PO DAILY 09/15/24
triamterene 37.5 mg-hydrochlorothiazide 25 mg tablet 1 tab PO DAILY 09/15/24
umeclidinium 62.5 mcg-vilanterol 25 mcg/actuation powdr for inhalation (Anoro Ellipta) 1 inh inhalation R DAILY 09/15/24
Review of Systems
-
History Source: Patient
A 12 point ROS was completed and negative except as noted: Yes
Constitutional: Reports See HPI
EENT: Reports No Symptoms
Respiratory: Reports No Symptoms
Cardiac: Reports No Symptoms
Abdomen/GI: Reports Abdominal Pain (severe across entire lower abd) and Vomiting (this morning x1)
: Reports No Symptoms
Musculoskeletal: Reports No Symptoms
Skin: Reports No Symptoms
Neurological: Reports No Symptoms
Endocrine: Reports No Symptoms
Hematologic/Lymphatic: Reports No Symptoms
Psych: Reports No Symptoms
Physical Exam
Vital Signs
Vital Signs
Temp Pulse Resp BP Pulse Ox
98.7 F 90 20 116/52 93
09/15/24 20:12 09/15/24 20:12 09/15/24 20:12 09/15/24 20:12 09/15/24 20:12
Physical Exam
General: Well Developed, Well Nourished and Pain (8-10/10 across low abd. Does have RLQ pain when palapated. +guarding)
HEENT: NormoCephalic, Moist mucous membranes and Atraumatic
Respiratory: Clear, Non Labored Respirations and Other (pulse ox dipped aftr pain med. on oxygen supplementation for that. does not wear o2 at home)
Cardiac: S1/S2 and Regular Rhythm; No Peripheral Edema
Breast: Deferred by me
GI: Soft, Tender (across entire lower abd but more so with palpation in RLQ mod distended) and Distended
Rectal: Other
Genito-urinary: Deferred by me
Musculoskeletal: No Clubbing and No Cyanosis
Skin: Warm and Dry
Neuro: Awake, Alert, Oriented, AO x 3 and No Motor Deficits
Hematologic/Lymphatic: No Lymphadenopathy
Psych: Calm
Laboratory Results
-
09/15/24 12:22
09/15/24 12:22
Laboratory Results
Lactic Acid 2.1 mmol/L (0.7-2.0) H 09/15/24 17:30
Total Bilirubin 0.8 mg/dl (0.2-1.3) 09/15/24 12:22
AST 28 U/L (14-36) 09/15/24 12:22
ALT 28 U/L (0-35) 09/15/24 12:22
Alkaline Phosphatase 55 U/L (38-126) 09/15/24 12:22
Lipase 190 U/L (23-300) 09/15/24 12:22
Impression/Plan
-
IMPRESSION:
acute appendicitis
PLAN:
Admit to service of DR Clark
med surg obs
#acute appendicitis
-NPO x ice and med until midnight then no CHIPS
-ivf: nss@100
-cont zosyn q6h
- LActic 2.1--> fluids given in ED--> recheck in [address] Clark if >2.0
-WBC 14.1 with left shift--> recheck in am
-Pain control: tylenol.dilaudid.toradol
#copd
-cont ellipta or equivilant
-albuterol prn
- teach IS as ct showed atelectasis
-smoking cessation advised
#HTN
-cont norvasc
-hold triamterne for now
#HLD
-cont lipitor
-cont tricor
#gerd
-cont omeprazole
#daily ETOH
-drink 1-2 glasses wine nightly
-never had ss of ETOH withdrawal
-will add msas to be safe
dvt proph-scd
Code status: no living will but when asked if she would want to be resuscitated in the event of cardiac arrest pt stated 'no.' Will make DNR per wishes.
--- NOTE | 2024-09-15 21:35 | PTCARENOTE ---
Pt received from ED to [facility]-2. Pt oriented to room and call hernandez.
[2024-09-15 21:36] VITALS: BMI 23.0
[2024-09-15 21:43] VITALS: BP 133/74
[2024-09-15 22:38] LABS: Alcohol None Detected
[2024-09-15 23:33] LABS: Lactic Acid 1.4 mmol/L (0.7-2.0)
[2024-09-15 23:36] VITALS: BP 115/68
[2024-09-16] VITALS (15 sets, daily range): BP systolic 105–146; BP diastolic 56–74
[2024-09-16] MEDS: ZOSYN 50 IV ×5 (00:13→23:22)
[2024-09-16] MEDS: DILAUDID 0.5 MG IV ×4 (00:15→09:42)
[2024-09-16 07:00] LABS: Urine Albumin Trace (Neg - Trace); Urine Bilirubin 1+ (Negative); Urine Character Clear (Clear); Urine Color Amber; Urine Glucose Negative (Negative); Urine Ketone Negative (Negative); Urine Leukocyte Trace (Negative); Urine Nitrite Positive (Negative); Urine Occult Blood Negative (Negative); Urine Urobilinogen Negative (Neg - 1+)
[2024-09-16 07:01] LABS: Blood Urea Nitrogen 24 mg/dl (7-17); Calcium 9.3 mg/dl (8.4-10.2); Carbon Dioxide 24 mmol/L (22-30); Chloride 102 mmol/L (98-107); Estimated Creatinine Clearance 39 ml/min; Glucose 111 mg/dl (70-99); Potassium 3.7 mmol/L (3.5-5.1); Sodium 138 mmol/L (135-145); eGFR 46.33
[2024-09-16 07:12] LABS: % Basophils 0.2 % (0-2); % Eosinophils 0.7 % (0-6); % Immature Granulocytes 0.5 % (0-0.5); % Lymphocytes 13.2 % (20.5-51.1); % Monocytes 4.1 % (1.7-9.3); % Neutrophils 81.3 % (42.2-75.2); Absolute Eosinophils 0.1 10^3/uL (0-0.7); Absolute Immature Granulocytes 0.1 10^3/uL (0-0.05); Absolute Lymphocytes 1.7 10^3/uL (1.2-3.4); Absolute Monocytes 0.5 10^3/uL (0.1-0.6); Absolute Neutrophils 10.7 10^3/uL (1.4-6.5); Hematocrit 36.9 % (37.0-47.0); Hemoglobin 12.3 g/dL (12.0-16.0); Mean Corp Hgb Conc. 33.3 g/dL (33.0-37.0); Mean Corpuscular Hgb 32.4 pg (27.0-31.0); Mean Corpuscular Volume 97.1 fL (81.0-99.0); Mean Platelet Volume 10.3 fL (7.4-10.4); Nucleated Red Blood Cells % 0 %; Platelet Count 271 10^3/uL (130-400); Red Cell Dist. Width 12.4 % (11.5-14.5); White Blood Cell Count 13.1 10^3/uL (4.8-10.8)
[2024-09-16 07:20] LABS: Urine Bacteria Few (Negative); Urine Red Blood Cell 0-2 /HPF (0-2)
[2024-09-16] MEDS: SPIRIVA RESPIMAT 2.5 MCG 2 PUFF INH (08:08)
[2024-09-16] MEDS: STRIVERDI RESPIMAT 2 PUFF INH (08:08)
[2024-09-16] MEDS: WELLBUTRIN XL (24 hour extended release) 300 MG PO (08:47)
[2024-09-16] MEDS: NORVASC 10 MG PO (08:47)
[2024-09-16] MEDS: PROTONIX 40 MG PO (08:47)
[2024-09-16] MEDS: LIPITOR 80 MG PO (08:47)
[2024-09-16] MEDS: TRICOR 145 MG PO (08:47)
[2024-09-16] MEDS: THIAMINE INJECTION 200 MG IV ×2 (08:48→21:48)
[2024-09-16] MEDS: FOLVITE 1 MG PO (08:48)
[2024-09-16] MEDS: NSS 1000 IV (10:13)
--- NOTE | 2024-09-16 16:45 | W.IMMPOSTOP ---
Surgical Immed Post Op Note
-
Primary Surgeon: La
Pre-op Diagnosis: Acute appendicitis
Post-op Diagnosis: Same
Procedure Performed: Laparoscopic appendectomy
Anesthesia Type: GETA
Specimen / Cultures: Appendix
Estimated Blood Loss: 10cc
Complications: none immediate
Operative Findings: Severely inflamed appendix with dense inflammatory reaction with adhesions from cecum to abdominal and pelvic wall and reactive inflammation/hyperemia of adjacent small bowel loops; no pus, no stool contamination, scant turbid
fluid suctioned from pelvis
updated by phone, anticipate possible ileus, this was explained in our conversation
--- NOTE | 2024-09-16 16:47 | OR.RPT ---
Operative Report
Operative Report
Primary Surgeon: La
Pre-op Diagnosis: Acute appendicitis
Post-op Diagnosis: Same
Procedure Performed: Laparoscopic appendectomy
Anesthesia Type: GETA
Specimen / Cultures: Appendix
Estimated Blood Loss: 10cc
Complications: none immediate
Operative Findings: Severely inflamed appendix with dense inflammatory reaction with adhesions from cecum to abdominal and pelvic wall and reactive inflammation/hyperemia of adjacent small bowel loops; no pus, no stool contamination, scant turbid
fluid suctioned from pelvis; cecum inspected and appeared healthy
Date of Surgery: 09/16/24
Indications: This 79F developed right lower quadrant abdominal pain and on workup was found to have acute appendicitis. Laparoscopic appendectomy was elected.
Description of procedure: The patient was placed on the operating table in the supine position. General anesthesia was induced. A time-out was completed verifying correct patient, procedure, site, positioning, and special equipment prior to
beginning this procedure. An orogastric tube was placed. The abdomen was prepped and draped in the usual sterile fashion. A stab incision was made in left upper quadrant and the Veress needle was inserted. Proper position was confirmed by aspiration
and saline meniscus test. The abdomen was insufflated with carbon dioxide to a pressure of 12 mmHg. The patient tolerated insufflation well.
A 5mm optical trocar was then inserted at the left lower quadrant. The laparoscope was inserted and the abdomen inspected. No injuries from initial trocar placement or Veress needle insertion were noted. Additional trocars were then inserted in the
following locations: a 12-mm trocar at the umbilicus and a 5-mm trocar midline in the suprapubic space. The abdomen was inspected and no abnormalities were found. The table was placed in the Trendelenburg position with the right side up. Dense
adhesions from cecum to abdominal and pelvic sidewall were taken down with voyant device. Cecum and ascending colon were mobilized along the lateral avascular plane for several cm in a cephalad direction. The base of the appendix was identified,
however the tip was densely adherent to the retroperitoneum and obscured by inflamed small bowel loops. A window was created in the appendiceal mesentery at the base using the voyant maryland tip. An endo THANG stapler with [place] load was used to
transect the appendix at its base incorporating a cuff of healthy appearing cecum. The appendiceal blood supply was then controlled with the voyant device and the stapled edge of the appendix was grasped and elevated. Small bowel loops were gently
bluntly swept away and the voyant device was used to march down the appendiceal mesentery taking care to protect the terminal ileum. Ultimately the tip of the appendix was liberated from dense attachments to the retroperitoneum taking care not to
injure retroperitoneal structures. The appendix was placed in an endoscopic retrieval bag, removed through the umbilical port, and passed off the table as a specimen.
We then turned our attention to the staple line, which was noted to be hemostatic. Scant turbid fluid was suctioned from the pelvis. The umbilical trocar site was closed at the fascial level laparoscopically with 2-0 PDS under direct vision.
Secondary trocars were removed under direct vision and noted to be hemostatic. The laparoscope was withdrawn and the abdomen was allowed to collapse. The skin was closed with subcuticular sutures of 4-0 monocryl and topical skin adhesive. The
orogastric tube was removed.
The patient tolerated the procedure well and was taken to the postanesthesia care unit in stable condition.
[2024-09-16] MEDS: TYLENOL 1000 MG PO ×2 (17:19→23:22)
--- NOTE | 2024-09-16 17:48 | CM ---
employee services manager reviewed patient's chart and met with patient and patient lives with spouse in a 2 story home, patient is independent with adl's and ambulation, patient has stair glide to 2nd floor.
PCP: Ade munoz
Pharmacy [facility] in [place].
[2024-09-16 20:48] LABS: Glucose - Point of Care 210 mg/dl (70-99)
--- NOTE | 2024-09-16 21:05 | W.PN.UPDATE ---
Update Note
Progress Note Update
s/p fall
2039 RN notified CRIME SCENE INVESTIGATOR, patient had a fall, fall was witnessed by son. Patient reports she was leaning on the door backwards thinking the door was locked, and fell hitting elbows on the floor but unsure if she hit her head. Son reports 'looked like she
did, as her back of the head was down on the floor'. Patient reports she is always dizzy at home, but less dizzy now, She denies loosing consciousness or loosing balance. Patient is AAOx3, Neurocheck 15, no bruises, cuts or bumps noted. mild redness
at elbow, denies head ache, blur vision, follows commands at present. On Heparin SQ Q12, will hold, SCD's, Ambulatory, fall precautions advised.
146/74, 18, 98.0, hr 86, 94%RA BS [address] head without IV Contrast now.
K 3.4 will replete with Kcl 40meq PO
CT head results noted. No evidence of acute intracranial abnormality.
Dr. Haddad made aware.
[2024-09-16 21:14] LABS: Hemoglobin 11.1 g/dL (12.0-16.0); Mean Corp Hgb Conc. 33.6 g/dL (33.0-37.0); Mean Corpuscular Hgb 32.2 pg (27.0-31.0); Mean Corpuscular Volume 95.7 fL (81.0-99.0); Mean Platelet Volume 10.1 fL (7.4-10.4); Platelet Count 235 10^3/uL (130-400); Red Blood Cell Count 3.45 10^6/uL (4.20-5.40)
[2024-09-16 21:25] LABS: Blood Urea Nitrogen 22 mg/dl (7-17); Calcium 8.4 mg/dl (8.4-10.2); Carbon Dioxide 22 mmol/L (22-30); Chloride 103 mmol/L (98-107); Estimated Creatinine Clearance 52 ml/min; Glucose 192 mg/dl (70-99); Potassium 3.4 mmol/L (3.5-5.1); Sodium 137 mmol/L (135-145); eGFR > 60.00
[2024-09-16] MEDS: KCL 40 MEQ PO (21:49)
[2024-09-16] MEDS: HEPARIN SC (21:58)
[2024-09-17] VITALS (8 sets, daily range): BP systolic 113–151; BP diastolic 58–86; PULSE 96–101
[2024-09-17] MEDS: NSS 1000 IV (04:00)
--- NOTE | 2024-09-17 04:40 | FALL ---
Description of Fall:
Pt assisted to BR by staff member and educated to pull cord when finished. Pt did not use call hernandez, stood up, leaned against the door because she was dizzy and thought door was closed and pt fell back. Pt said they hit the back of their head, MANNIE
notified. VSS. BRIM BUSTER at bedside to evaluate pt, head CT, labs, neuro checks, and orthos BID ordered.
Injuries Noted:
None
Action Taken:
Pt educated to use call hernandez.
Name of Provider Notified: MANNIE Lam
[2024-09-17] MEDS: TYLENOL 1000 MG PO ×3 (05:15→17:14)
[2024-09-17] MEDS: ZOSYN 50 IV ×3 (05:15→17:14)
[2024-09-17] MEDS: NSS IV (07:35)
[2024-09-17] MEDS: WELLBUTRIN XL (24 hour extended release) 300 MG PO (07:39)
[2024-09-17] MEDS: LIPITOR 80 MG PO (07:39)
[2024-09-17] MEDS: TRICOR 145 MG PO (07:39)
[2024-09-17] MEDS: PROTONIX 40 MG PO (07:39)
[2024-09-17] MEDS: NORVASC 10 MG PO (07:39)
[2024-09-17] MEDS: FOLVITE 1 MG PO (07:39)
[2024-09-17] MEDS: THIAMINE INJECTION 200 MG IV ×2 (07:39→20:56)
[2024-09-17 07:48] LABS: Hematocrit 32.6 % (37.0-47.0); Mean Corp Hgb Conc. 33.7 g/dL (33.0-37.0); Mean Corpuscular Hgb 32.5 pg (27.0-31.0); Mean Corpuscular Volume 96.4 fL (81.0-99.0); Mean Platelet Volume 10.6 fL (7.4-10.4); Platelet Count 228 10^3/uL (130-400); Red Blood Cell Count 3.38 10^6/uL (4.20-5.40); White Blood Cell Count 12.4 10^3/uL (4.8-10.8)
[2024-09-17] MEDS: SPIRIVA RESPIMAT 2.5 MCG 2 PUFF INH (07:55)
[2024-09-17] MEDS: STRIVERDI RESPIMAT 2 PUFF INH (07:55)
[2024-09-17 08:13] LABS: Blood Urea Nitrogen 20 mg/dl (7-17); Calcium 9.2 mg/dl (8.4-10.2); Carbon Dioxide 21 mmol/L (22-30); Chloride 108 mmol/L (98-107); Estimated Creatinine Clearance 58 ml/min; Glucose 149 mg/dl (70-99); Potassium 3.8 mmol/L (3.5-5.1); Sodium 138 mmol/L (135-145); eGFR > 60.00
--- NOTE | 2024-09-17 10:05 | W.PN.GS2 ---
Today's Communication / Plan
-
`
Assessment / Plan
-
Assessment: 79 y/o female POD#1 s/p lap appy
severe appendicitis but no perforation or abscess
AFVSS
WBC down to 12
Plan: hold on liquid diet - fulls - advised to go slow as is distended and tympanitic
zosyn
home meds
heparin/SCDs/ambulation for VTEp
Subjective Data
-
Date of Service: September 17, 2024
pt seen and examined
abdomen feels tight but also states hungry
no nausea/vomiting
not much flatus yet, no BM
minimal post op pain
Objective Data
-
Intake and Output
09/16/24 09/17/24 09/18/24
06:59 06:59 06:59
Intake Total 120 / 120 1570 / 1570
Balance 120 / 120 1570 / 1570
Intake:
Oral fluids 120 / 120 720 / 720
IV fluids (Total) 850 / 850
Normosol 50 / 50
Other:
Number of approximated SMALL 1
amounts of urine
Number of approximated MODERATE 2 2
amounts of urine
Vital Signs
Temp Pulse Resp BP Pulse Ox
97.5 F 92 18 122/65 95
09/17/24 07:56 09/17/24 07:59 09/17/24 07:59 09/17/24 07:56 09/17/24 07:59
Lab Results
09/17/24 07:05
09/17/24 07:05
Calcium 9.2 mg/dl (8.4-10.2) 09/17/24 07:05
Total Bilirubin 0.8 mg/dl (0.2-1.3) 09/15/24 12:22
AST 28 U/L (14-36) 09/15/24 12:22
ALT 28 U/L (0-35) 09/15/24 12:22
Alkaline Phosphatase 55 U/L (38-126) 09/15/24 12:22
Total Protein 6.6 g/dl (6.3-8.2) 09/15/24 12:22
Albumin 4.6 g/dl (3.5-5.0) 09/15/24 12:22
Physical Exam
-
NAD AAOx3
ABD: soft but distended and tympanitic
mild incisional tenderness
incisions with glue dressings
--- NOTE | 2024-09-17 15:23 | CM ---
ready to wear department manager reviewed patient's chart and patient went to OR yesterday, patient has switched to inpatient IMM signed and placed on chart, home with spouse when stable.
plan; Home with spouse when stable.
[2024-09-17 19:01] LABS: Hepatitis C Antibody Negative (Negative)
[2024-09-17] MEDS: HEPARIN SC (20:56)
[2024-09-18] MEDS: ZOSYN 50 IV ×5 (00:22→23:25)
[2024-09-18] MEDS: ZOFRAN 4 MG IV ×3 (00:22→17:23)
[2024-09-18] MEDS: TYLENOL PO ×2 (00:31→05:28)
--- NOTE | 2024-09-18 01:15 | PTCARENOTE ---
Pt reporting increased nausea and severe pain throughout abdomen. PRN IV zofran and PO oxycodone 10mg provided. Pt reports feeling 'bloated' and constipated, as well as having difficulty sleeping. KALE Leger notified, order placed for stat
melatonin. Pt walked to by this display card writer, pt voided but no BM. Last BM per pt was on 09/14. Pt placed back in bed and fell asleep. KALE Leger notified that pt is resting in bed, will hold off on giving stat melatonin. Pt encouraged to increase
activity/ambulation during day in the AM.
0400: Pt reports that her abdominal pain has decreased and she is still feeling nauseous but 'it's a little better'. Will continue with current plan of care.
[2024-09-18] MEDS: ROXICODONE 10 MG PO (01:24)
--- NOTE | 2024-09-18 04:56 | W.PN.UPDATE ---
Update Note
Progress Note Update
RN reports patient With multiple complaints. C/o abdomen pain (received oxycodone) feeling bloated, nausea (some relief with Zofran), feeling constipated LBM 09/14. Abdomen is distended, mildly tight, tender. Hard to hear BS, tympanic,'Not much
flatus', + belching. She tells me nausea, bloating and pain getting worse since MN, last VS 98.0 148/86, 85, 16, 97%2l. Dr. Clark made aware.
Advised Xray Abdomen and NG tube if patient is vomiting.
orders placed.
NPO
--- NOTE | 2024-09-18 06:41 | W.PN.UPDATE ---
Update Note
Progress Note Update
Brief General Surgery note:
Paged regarding patient's nausea and abdominal pain.
X-ray ordered and reviewed there appears to be significantly dilated bowel consistent with ileus (expected) and stomach bubble as well.
NG tube ordered
Postplacement x-ray ordered as well.
[2024-09-18 07:15] VITALS: BP 146/82
[2024-09-18] MEDS: SPIRIVA RESPIMAT 2.5 MCG INH (07:51)
[2024-09-18] MEDS: STRIVERDI RESPIMAT INH (07:51)
[2024-09-18 08:00] VITALS: BP 126/78; BP 129/73; BP 136/74; PULSE 82; PULSE 86; PULSE 87
--- NOTE | 2024-09-18 09:32 | W.PN.GS2 ---
Today's Communication / Plan
-
`
Assessment / Plan
-
Assessment: 79 y/o female POD#2 s/p lap appy
severe appendicitis but no perforation or abscess
AFVSS
ileus now present; abd xray reviewed: significant SB distention but not much gas distention of the stomach. air in colon as well
Plan: back down to NPO - stop PO Meds
discussed rationale for possible NGT placement; will cautiously hold off for now as examination fairly stable compared to yesterday but if worsening pain/distention or nausea then will place NGT
IVF resumed - d51/2NSS with 20kcl
adjusted pain medications - Ofirmev first line to avoid narcotics
check AM labs
zosyn for severe appendicitis
encouraged OOBTC and ambulation
heparin/SCDs/ambulation for VTEp
pts son on phone during evaluation, any questions discussed/addressed
Subjective Data
-
Date of Service: September 18, 2024
pt seen and examined
overnight events/notes reviewed
pt states belching and a bit of bile/phlegm vomited earlier but states small quantity
no flatus
feels tight/distended but states stable
nausea at the moment improved
no worsening abdominal pains
Objective Data
-
Intake and Output
09/17/24 09/18/24 09/19/24
06:59 06:59 06:59
Intake Total 1570 / 1570 1240 / 1240
Balance 1570 / 1570 1240 / 1240
Intake:
Oral fluids 720 / 720 1140 / 1140
IV fluids (Total) 850 / 850
Normosol 50 / 50
IV piggybacks 100 / 100
Other:
Number of approximated MODERATE 2 4
amounts of urine
Vital Signs
Temp Pulse Resp BP Pulse Ox
97.6 F 96 18 146/82 97
09/18/24 07:15 09/18/24 07:15 09/18/24 07:15 09/18/24 07:15 09/18/24 07:15
Calcium 9.2 mg/dl (8.4-10.2) 09/17/24 07:05
Total Bilirubin 0.8 mg/dl (0.2-1.3) 09/15/24 12:22
AST 28 U/L (14-36) 09/15/24 12:22
ALT 28 U/L (0-35) 09/15/24 12:22
Alkaline Phosphatase 55 U/L (38-126) 09/15/24 12:22
Total Protein 6.6 g/dl (6.3-8.2) 09/15/24 12:22
Albumin 4.6 g/dl (3.5-5.0) 09/15/24 12:22
Physical Exam
-
NAD AAOx3
ABD: soft but distended and tympanitic; minimal tenderness, no R/R/G
incisions with glue dressings
[2024-09-18 09:55] LABS: Hematocrit 36.1 % (37.0-47.0); Hemoglobin 12.2 g/dL (12.0-16.0); Mean Corp Hgb Conc. 33.8 g/dL (33.0-37.0); Mean Corpuscular Hgb 32.4 pg (27.0-31.0); Mean Platelet Volume 9.9 fL (7.4-10.4); Platelet Count 309 10^3/uL (130-400); Red Blood Cell Count 3.76 10^6/uL (4.20-5.40); Red Cell Dist. Width 12.1 % (11.5-14.5); White Blood Cell Count 11.4 10^3/uL (4.8-10.8)
[2024-09-18 10:08] LABS: Blood Urea Nitrogen 15 mg/dl (7-17); Calcium 9.7 mg/dl (8.4-10.2); Carbon Dioxide 24 mmol/L (22-30); Chloride 104 mmol/L (98-107); Estimated Creatinine Clearance 58 ml/min; Glucose 124 mg/dl (70-99); Potassium 3.3 mmol/L (3.5-5.1); Sodium 140 mmol/L (135-145); eGFR > 60.00
[2024-09-18] MEDS: FOLVITE PO (10:26)
[2024-09-18] MEDS: TRICOR PO (10:26)
[2024-09-18] MEDS: LIPITOR PO (10:26)
[2024-09-18] MEDS: WELLBUTRIN XL (24 hour extended release) PO (10:26)
[2024-09-18] MEDS: NORVASC PO (10:26)
[2024-09-18] MEDS: PROTONIX PO (10:31)
[2024-09-18] MEDS: THIAMINE INJECTION 200 MG IV ×2 (10:34→20:30)
[2024-09-18] MEDS: HEPARIN 5000 UNITS SC ×2 (10:35→20:29)
[2024-09-18] MEDS: OFIRMEV 100 IV (10:48)
[2024-09-18] MEDS: KCL 270 MEQ IV (11:26)
[2024-09-18] MEDS: D5/0.45%NSS with KCL 20 MEQ 1000 IV ×2 (11:29→22:02)
--- NOTE | 2024-09-18 14:41 | CM ---
Chart reviewed and plan is to home no needs.
Plan; Home no needs.
[2024-09-18 15:00] VITALS: BP 126/78
--- NOTE | 2024-09-18 15:38 | W.PN.UPDATE ---
Update Note
Progress Note Update
S: Ileus present, expected
B: Nausea with belching overnight and episode of bilious emesis. Now reports she is passing flatus and nausea improved. Still with belching.
A: ABD softly distended, LENS GENERATOR. Ambulating in room with family.
R: Will keep NPO until more signs of GI recovery. Hold off on NGT unless vomiting recurs/nausea worsening. Will follow for continued improvement.
[2024-09-18] MEDS: DILAUDID 0.5 MG IV ×2 (16:34→20:30)
--- NOTE | 2024-09-18 17:43 | PN.CDI ---
CDI
- -
CDI:
Physician Documentation Request
Admit Date: 09/17/24 10:09
Dear Doctor / FIBERGLASS ROLLER ,
Please review the following and provide your response in the progress notes.
Clinical Indicators:
Pt admitted with Severe appendicitis s/p Appendectomy
Renal functions are as below/ Pt did get IVFs
09/15/24 09/16/24 09/16/24
12:22 06:34 21:03
Creatinine 0.9 1.2 H 0.9
09/17/24
07:05
Creatinine 0.8
Please clarify which of the following accurately represents the patient's renal status based on the above findings:
JESSICA
Insignificant lab value
Other ( please specify)
Criteria for JESSICA*
1 Increase in serum creatinine by > or = to 0.3 mg/dL (> or = to 26.5 micromol/L) within 48 hours, OR
2 Increase in serum creatinine to > or = to 1.5 times baseline, which is known or presumed to have occurred within 7 days, OR
3 Urine volume < 0.5 nL/kg/hour for six hours
Use of terms such as suspected, likely, concern for, or probable (associated with a specific diagnosis that is being evaluated, monitored, or treated as if it exists) are acceptable and can be coded in the inpatient setting, when documented at the
time of discharge.
Thank you,
Johanna Evans RN
CDI Specialist
[place] [facility]
Please use your independent medical judgment in providing your response.
*Source: Kidney Disease: Improving Global Outcomes (KDIGO) 2012
[2024-09-18 19:27] VITALS: BP 137/73; BP 137/77; BP 139/79; PULSE 86; PULSE 87; PULSE 92
[2024-09-18 23:40] VITALS: BP 135/68
[2024-09-19] MEDS: DILAUDID 0.5 MG IV ×3 (02:50→16:03)
[2024-09-19] MEDS: ZOSYN 50 IV ×3 (06:08→16:48)
[2024-09-19 07:00] VITALS: BP 114/67
[2024-09-19] MEDS: D5/0.45%NSS with KCL 20 MEQ 1000 IV ×3 (07:28→21:05)
[2024-09-19] MEDS: HEPARIN 5000 UNITS SC ×2 (07:30→20:56)
[2024-09-19] MEDS: STRIVERDI RESPIMAT 2 PUFF INH (07:31)
[2024-09-19] MEDS: SPIRIVA RESPIMAT 2.5 MCG 2 PUFF INH (07:31)
[2024-09-19 08:41] LABS: Hematocrit 34.5 % (37.0-47.0); Hemoglobin 11.6 g/dL (12.0-16.0); Mean Corp Hgb Conc. 33.6 g/dL (33.0-37.0); Mean Corpuscular Hgb 32.7 pg (27.0-31.0); Mean Corpuscular Volume 97.2 fL (81.0-99.0); Mean Platelet Volume 10.8 fL (7.4-10.4); Platelet Count 325 10^3/uL (130-400); Red Blood Cell Count 3.55 10^6/uL (4.20-5.40); White Blood Cell Count 7.9 10^3/uL (4.8-10.8)
[2024-09-19 09:09] LABS: Blood Urea Nitrogen 9 mg/dl (7-17); Calcium 9.3 mg/dl (8.4-10.2); Carbon Dioxide 23 mmol/L (22-30); Chloride 104 mmol/L (98-107); Estimated Creatinine Clearance 67 ml/min; Glucose 129 mg/dl (70-99); Magnesium 1.9 mg/dl (1.6-2.3); Potassium 3.5 mmol/L (3.5-5.1); Sodium 138 mmol/L (135-145); eGFR > 60.00
[2024-09-19 09:30] VITALS: BP 127/81; BP 138/78; BP 141/78; PULSE 85
--- NOTE | 2024-09-19 13:13 | W.PN.GS2 ---
Addendum entered and electronically signed by Sandro Enciso MD 09/19/24 19:51:
I saw and examined the patient.
The PREMIUM SERVICE REPRESENTATIVE's note was reviewed and I agree with the note.
Addendum entered and electronically signed by MANNIE Ramsey 09/19/24 17:53:
Mild JESSICA noted preoperatively secondary to hypovolemia: resolved with IVF
Original Note:
Today's Communication / Plan
-
continue npo
Assessment / Plan
-
Assessment: 79 y/o female POD#3 s/p lap appy
severe appendicitis but no perforation or abscess
AFVSS
ileus now present and confirmed on abd xray: significant SB distention but not much gas distention of the stomach. air in colon as well
hypokalemia resolved with replacement
Plan: Continue NPO - stop PO Meds
discussed rationale for possible NGT placement; will cautiously hold off for now as examination fairly stable compared to yesterday but if worsening pain/distention or nausea then will place NGT
IVF continued - d51/2NSS with 20kcl
Ofirmev first line to avoid narcotics
check AM labs
zosyn for severe appendicitis
encouraged OOBTC and ambulation
heparin/SCDs/ambulation for VTEp
Subjective Data
-
Date of Service: September 19, 2024
Patient seen and examined at bedside with Dr. Enciso. Episode of small amount of vomiting last night, none today. Intermittent waves of nausea. Passing flatus, no stool yet. Pain not worsening, some incisional discomfort persists.
Objective Data
-
Intake and Output
09/18/24 09/19/24 09/20/24
06:59 06:59 06:59
Intake Total 1240 / 1240
Balance 1240 / 1240
Intake:
Oral fluids 1140 / 1140
IV piggybacks 100 / 100
Other:
Number of approximated MODERATE 4 4
amounts of urine
Vital Signs
Temp Pulse Resp BP Pulse Ox
98.4 F 77 14 114/67 93
09/19/24 07:00 09/19/24 07:35 09/19/24 07:35 09/19/24 07:00 09/19/24 07:35
Lab Results
09/19/24 06:33
09/19/24 06:33
Calcium 9.3 mg/dl (8.4-10.2) 09/19/24 06:33
Magnesium 1.9 mg/dl (1.6-2.3) 09/19/24 06:33
Total Bilirubin 0.8 mg/dl (0.2-1.3) 09/15/24 12:22
AST 28 U/L (14-36) 09/15/24 12:22
ALT 28 U/L (0-35) 09/15/24 12:22
Alkaline Phosphatase 55 U/L (38-126) 09/15/24 12:22
Total Protein 6.6 g/dl (6.3-8.2) 09/15/24 12:22
Albumin 4.6 g/dl (3.5-5.0) 09/15/24 12:22
Physical Exam
-
NAD AAOx3
ABD: soft but distended and tympanitic; minimal tenderness, no R/R/G
incisions with glue dressings
[2024-09-19 15:00] VITALS: BP 148/80
[2024-09-19 19:30] VITALS: BP 132/73; BP 139/74; BP 146/77; PULSE 82; PULSE 86; PULSE 91
[2024-09-19] MEDS: OFIRMEV 100 IV (21:03)
[2024-09-19 23:30] VITALS: BP 130/68
[2024-09-20] MEDS: ZOSYN 50 IV ×4 (00:48→17:04)
[2024-09-20 03:11] VITALS: BP 140/66
[2024-09-20] MEDS: DILAUDID 0.5 MG IV ×5 (05:58→20:32)
[2024-09-20] MEDS: D5/0.45%NSS with KCL 20 MEQ 1000 IV ×2 (06:55→17:04)
[2024-09-20 07:07] VITALS: BP 138/73
[2024-09-20 07:18] LABS: Hematocrit 34.1 % (37.0-47.0); Hemoglobin 11.4 g/dL (12.0-16.0); Mean Corp Hgb Conc. 33.4 g/dL (33.0-37.0); Mean Corpuscular Hgb 32.1 pg (27.0-31.0); Mean Corpuscular Volume 96.1 fL (81.0-99.0); Mean Platelet Volume 10.6 fL (7.4-10.4); Platelet Count 326 10^3/uL (130-400); Red Blood Cell Count 3.55 10^6/uL (4.20-5.40); Red Cell Dist. Width 11.8 % (11.5-14.5); White Blood Cell Count 7.3 10^3/uL (4.8-10.8)
[2024-09-20] MEDS: STRIVERDI RESPIMAT 2 PUFF INH (07:38)
[2024-09-20] MEDS: SPIRIVA RESPIMAT 2.5 MCG 2 PUFF INH (07:38)
[2024-09-20 07:45] LABS: Blood Urea Nitrogen 7 mg/dl (7-17); Calcium 9.3 mg/dl (8.4-10.2); Carbon Dioxide 22 mmol/L (22-30); Chloride 105 mmol/L (98-107); Estimated Creatinine Clearance 78 ml/min; Glucose 131 mg/dl (70-99); Potassium 3.7 mmol/L (3.5-5.1); Sodium 137 mmol/L (135-145); eGFR > 60.00
[2024-09-20] MEDS: HEPARIN 5000 UNITS SC ×2 (07:48→20:32)
--- NOTE | 2024-09-20 13:22 | W.PN.GS2 ---
Addendum entered and electronically signed by Sandro Enciso MD 09/20/24 15:31:
I saw and examined the patient.
The FASHION SUPERVISOR's note was reviewed and I agree with the note.
Original Note:
Today's Communication / Plan
-
NPO with sips/po meds
Assessment / Plan
-
Assessment: 79 y/o female POD#4 s/p lap appy
severe appendicitis but no perforation or abscess
AFVSS
ileus present with some improvement today as she has had a small bm and is passing a little flatus. Nausea resolved as well.
labs stable
Plan: Continue NPO, ok for sips of clears and PO meds
resume norvasc/wellbutrin in am
IVF continued - d51/2NSS with 20kcl until diet can be advanced
Tylenol, dilaudid for pain
check AM labs
continue zosyn given severe appendicitis
encouraged OOBTC and ambulation
heparin/SCDs/ambulation for VTEp
Subjective Data
-
Date of Service: September 20, 2024
Patient seen and examined at bedside with Dr. Enciso. Denies n/v. Passing some flatus and had a BM. Distention seems to be improved. Pain is a little better too.
Objective Data
-
Intake and Output
09/19/24 09/20/24 09/21/24
06:59 06:59 06:59
Intake Total 1420 / 1420
Balance 1420 / 1420
Intake:
IV fluids (Total) 1320 / 1320
IV piggybacks 100 / 100
Other:
Number of approximated MODERATE 4 3
amounts of urine
Vital Signs
Temp Pulse Resp BP Pulse Ox
98.3 F 76 18 138/73 93
09/20/24 07:07 09/20/24 07:44 09/20/24 07:44 09/20/24 07:07 09/20/24 07:44
Lab Results
09/20/24 06:28
09/20/24 06:28
Calcium 9.3 mg/dl (8.4-10.2) 09/20/24 06:28
Magnesium 1.9 mg/dl (1.6-2.3) 09/19/24 06:33
Total Bilirubin 0.8 mg/dl (0.2-1.3) 09/15/24 12:22
AST 28 U/L (14-36) 09/15/24 12:22
ALT 28 U/L (0-35) 09/15/24 12:22
Alkaline Phosphatase 55 U/L (38-126) 09/15/24 12:22
Total Protein 6.6 g/dl (6.3-8.2) 09/15/24 12:22
Albumin 4.6 g/dl (3.5-5.0) 09/15/24 12:22
Physical Exam
-
NAD AAOx3
ABD: soft but distended (milldy improved); minimal tenderness, no R/R/G
incisions with glue dressings
[2024-09-20 19:00] VITALS: BP 134/75; BP 137/74; BP 140/73; PULSE 76; PULSE 80; PULSE 84
[2024-09-20 23:31] VITALS: BP 148/72
[2024-09-21] MEDS: ZOSYN 50 IV ×2 (00:03→05:14)
[2024-09-21 00:55] VITALS: BP 143/76
[2024-09-21] MEDS: D5/0.45%NSS with KCL 20 MEQ 1000 IV ×2 (05:17→20:31)
[2024-09-21] MEDS: DILAUDID 0.5 MG IV ×3 (05:22→19:04)
[2024-09-21] MEDS: SPIRIVA RESPIMAT 2.5 MCG 2 PUFF INH (07:15)
[2024-09-21] MEDS: STRIVERDI RESPIMAT 2 PUFF INH (07:15)
[2024-09-21 07:34] VITALS: BP 128/72
[2024-09-21 07:35] VITALS: BP 121/74; BP 128/72; BP 131/78; PULSE 80; PULSE 83; PULSE 84
[2024-09-21] MEDS: TYLENOL 1000 MG PO (08:29)
[2024-09-21] MEDS: WELLBUTRIN XL (24 hour extended release) 300 MG PO (08:30)
[2024-09-21] MEDS: NORVASC 10 MG PO (08:30)
[2024-09-21] MEDS: HEPARIN 5000 UNITS SC ×2 (08:30→20:30)
[2024-09-21 09:12] LABS: Hematocrit 34.4 % (37.0-47.0); Hemoglobin 11.5 g/dL (12.0-16.0); Mean Corp Hgb Conc. 33.4 g/dL (33.0-37.0); Mean Corpuscular Hgb 31.9 pg (27.0-31.0); Mean Corpuscular Volume 95.6 fL (81.0-99.0); Mean Platelet Volume 10.4 fL (7.4-10.4); Platelet Count 364 10^3/uL (130-400); Red Cell Dist. Width 11.8 % (11.5-14.5); White Blood Cell Count 7.9 10^3/uL (4.8-10.8)
--- NOTE | 2024-09-21 09:22 | W.PN.GS2 ---
Today's Communication / Plan
-
Trial of clears
Assessment / Plan
-
Assessment: 79 y/o female POD#5 s/p lap appy
severe appendicitis but no perforation or abscess
JESSICA present on admission but now resolved, await BMP from today
AFVSS
ileus present (expected) which continues to improve. Still passing flatus with several stools, some distention persists but improved from previous
no leukocytosis
Plan: Trial of clear liquids
Resume home meds
IVF until tolerating PO
Tylenol, Toradol, Dilaudid for pain
stop antibiotics
encouraged OOBTC and ambulation
heparin/SCDs while in bed/ambulation for VTEp
Subjective Data
-
Date of Service: September 21, 2024
Patient seen and examined at bedside with Dr. Clark. Some incisional soreness but pain improved. Denies n/v. Passing flatus and has had some bm's as well.
Objective Data
-
Intake and Output
09/20/24 09/21/24 09/22/24
06:59 06:59 06:59
Intake Total 1420 / 1420 1060 / 1060
Balance 1420 / 1420 1060 / 1060
Intake:
IV fluids (Total) 1320 / 1320 960 / 960
IV piggybacks 100 / 100 100 / 100
Other:
Number of approximated MODERATE 3 7
amounts of urine
How many times incontinent 3
MODERATE amount urine
Vital Signs
Temp Pulse Resp BP Pulse Ox
98.7 F 80 18 128/72 96
09/21/24 07:34 09/21/24 07:34 09/21/24 07:34 09/21/24 07:34 09/21/24 07:34
Lab Results
09/21/24 08:34
Calcium 9.3 mg/dl (8.4-10.2) 09/20/24 06:28
Magnesium 1.9 mg/dl (1.6-2.3) 09/19/24 06:33
Total Bilirubin 0.8 mg/dl (0.2-1.3) 09/15/24 12:22
AST 28 U/L (14-36) 09/15/24 12:22
ALT 28 U/L (0-35) 09/15/24 12:22
Alkaline Phosphatase 55 U/L (38-126) 09/15/24 12:22
Total Protein 6.6 g/dl (6.3-8.2) 09/15/24 12:22
Albumin 4.6 g/dl (3.5-5.0) 09/15/24 12:22
Physical Exam
-
NAD AAOx3
ABD: softly distended (improved); minimal tenderness, no R/R/G
incisions with glue dressings
[2024-09-21 10:00] LABS: Blood Urea Nitrogen 6 mg/dl (7-17); Calcium 9.5 mg/dl (8.4-10.2); Carbon Dioxide 22 mmol/L (22-30); Chloride 102 mmol/L (98-107); Estimated Creatinine Clearance 67 ml/min; Glucose 118 mg/dl (70-99); Magnesium 1.7 mg/dl (1.6-2.3); Phosphorus 2.9 mg/dl (2.5-4.5); Potassium 3.7 mmol/L (3.5-5.1); Sodium 134 mmol/L (135-145); eGFR > 60.00
[2024-09-21] MEDS: TORADOL 15 MG IV (10:37)
--- NOTE | 2024-09-21 11:31 | PN.CDI ---
CDI
- -
CDI:
Physician Documentation Request
Admit Date: 09/17/24 10:09
Dear Doctor/ TOMATO PASTE MAKER,
Please review the following and provide your response in the progress notes.
Clinical Indicators:
Pt admitted with Severe appendicitis s/p Appendectomy/ Now with Ileus
Potassium levels as below/ per MAR did get IV KCL 40 LOUIS in NSS 09/18/ D5 0.45 NSS 20 MEQ IVF 09/18
09/16/24 09/18/24
21:03 09:37
Potassium 3.4 L 3.3 L
Based on the above, could you clarify in the progress notes, the appropriate diagnosis, if significant, that supports the above abnormalities and additional evaluation, monitoring and/or treatment rendered:
Hypokalemia
Abnormal lab value
Other ( please specify)
Use of terms such as suspected, likely, concern for, or probable (associated with a specific diagnosis that is being evaluated, monitored, or treated as if it exists) are acceptable and can be coded in the inpatient setting, when documented at the
time of discharge.
Thank you,
Johanna Evans RN
CDI Specialist
[place] [facility]
Please use your independent medical judgment in providing your response.
[2024-09-21 15:42] VITALS: BP 129/70
--- NOTE | 2024-09-21 16:03 | CM ---
Home when stable, no needs
Plan; Home when stable.
[2024-09-21 23:55] VITALS: BP 143/76
[2024-09-22] MEDS: DILAUDID 0.5 MG IV ×3 (00:38→20:15)
[2024-09-22 00:48] VITALS: BP 143/76
[2024-09-22] MEDS: SPIRIVA RESPIMAT 2.5 MCG 2 PUFF INH (07:34)
[2024-09-22] MEDS: STRIVERDI RESPIMAT 2 PUFF INH (07:34)
[2024-09-22] MEDS: WELLBUTRIN XL (24 hour extended release) 300 MG PO (07:49)
[2024-09-22] MEDS: NORVASC 10 MG PO (07:49)
[2024-09-22] MEDS: FOLVITE 1 MG PO (07:50)
[2024-09-22] MEDS: HEPARIN 5000 UNITS SC ×2 (07:50→20:13)
--- NOTE | 2024-09-22 08:41 | W.PN.GS2 ---
Today's Communication / Plan
-
-- LRD
Assessment / Plan
-
Assessment: 79 y/o female POD#6 s/p lap appy
AFVSS
Labs reviewed and stable, mild hyponatremia
Post-op ileus related to degree of appendicitis slowly improving. Passing flatus with several stools, some distention persists (patient reports at baseline) but improved from previous
no leukocytosis. Plan for dietary advancement, if any issues would obtain further imaging with abdominal X-ray
Plan:
-- LRD
-- Resume home meds
-- HLIV
-- Tylenol, Toradol, Tramadol, Dilaudid for pain
-- Abx completed on 09/21
-- OOB/ambulate
-- DVT: SQH, SCDs
Subjective Data
-
Date of Service: September 22, 2024
Reports some upper bilateral abdominal discomfort. Denies any nausea or vomiting. Denies any increased abdominal distention. Passing flatus and stools. Afebrile.
Objective Data
-
Intake and Output
09/21/24 09/22/24 09/23/24
06:59 06:59 06:59
Intake Total 1060 / 1060 2400 / 2400
Balance 1060 / 1060 2400 / 2400
Intake:
Oral fluids 1440 / 1440
IV fluids (Total) 960 / 960 960 / 960
IV piggybacks 100 / 100
Other:
Number of approximated MODERATE 7 3
amounts of urine
How many times incontinent 3
MODERATE amount urine
Vital Signs
Temp Pulse Resp BP Pulse Ox
98.2 F 83 16 143/76 94
09/22/24 08:33 09/22/24 08:33 09/22/24 08:33 09/21/24 23:55 09/22/24 08:33
Lab Results
09/21/24 08:34
09/21/24 08:34
Calcium 9.5 mg/dl (8.4-10.2) 09/21/24 08:34
Phosphorus 2.9 mg/dl (2.5-4.5) 09/21/24 08:34
Magnesium 1.7 mg/dl (1.6-2.3) 09/21/24 08:34
Total Bilirubin 0.8 mg/dl (0.2-1.3) 09/15/24 12:22
AST 28 U/L (14-36) 09/15/24 12:22
ALT 28 U/L (0-35) 09/15/24 12:22
Alkaline Phosphatase 55 U/L (38-126) 09/15/24 12:22
Total Protein 6.6 g/dl (6.3-8.2) 09/15/24 12:22
Albumin 4.6 g/dl (3.5-5.0) 09/15/24 12:22
Physical Exam
-
Gen: NAD
Abd: soft, NT, obese/distended (reports at baseline), mild tympany, non-peritoneal, incisions c/d/i - no erythema or drainage, mild ecchymosis
Patient has a conklin catheter: No
Patient has a central line: No
[2024-09-22] MEDS: D5/0.45%NSS with KCL 20 MEQ 1000 IV (08:59)
[2024-09-22] MEDS: ULTRAM 50 MG PO (09:06)
--- NOTE | 2024-09-22 11:45 | PTCARENOTE ---
2/4- Patient is experiencing epistaxis at this time. She coughed up some blood from her post-nasal drip. No clots currently observed. Applied ice and pressure with head in down position. Skin Warm/pink/dry with +PulsesX4. AAOX3. Patient states
she has a hx of epistaxis, known to her PCP. She states no reason has been found for it, but this has begun happening as of a few weeks ago. Notified Physician.
[2024-09-22 15:00] VITALS: BP 111/65
--- NOTE | 2024-09-22 15:11 | CM ---
Chart reviewed and plan is to home when stable, patient is interested in VN, [facility]
Plan; Home with spouse when stable.
[2024-09-22] MEDS: ZOFRAN 4 MG IV (20:11)
[2024-09-22 23:35] VITALS: BP 126/67; BP 130/66; BP 134/58; PULSE 85; PULSE 90
[2024-09-23] MEDS: ZOFRAN 4 MG IV ×3 (05:06→23:20)
[2024-09-23] MEDS: DILAUDID 0.5 MG IV ×5 (05:07→23:20)
[2024-09-23 07:00] VITALS: BP 129/67; BP 131/73; BP 132/68; PULSE 82; PULSE 85; PULSE 90
[2024-09-23] MEDS: SPIRIVA RESPIMAT 2.5 MCG 2 PUFF INH (07:17)
[2024-09-23] MEDS: STRIVERDI RESPIMAT 2 PUFF INH (07:17)
[2024-09-23] MEDS: FOLVITE 1 MG PO (07:43)
[2024-09-23] MEDS: WELLBUTRIN XL (24 hour extended release) 300 MG PO (07:43)
[2024-09-23] MEDS: NORVASC 10 MG PO (07:43)
[2024-09-23] MEDS: HEPARIN 5000 UNITS SC ×2 (07:44→20:30)
--- NOTE | 2024-09-23 10:08 | W.PN.GS2 ---
Addendum entered and electronically signed by Vamshi Tovar MD 09/23/24 10:13:
Addendum: PT eval and treat ordered
Original Note:
Today's Communication / Plan
-
DC home later today if pain controlled with PO meds
Family wants to know about options for rehab upon DC
Will ask CM to see
Assessment / Plan
-
Assessment: 79 y/o female POD#7 s/p lap appy with resolved post-op ileus
AFVSS
Taking dilaudid preferentially but not having severe pain
Post-op ileus related to degree of appendicitis slowly improving. Passing flatus with several stools, some distention persists (patient reports at baseline) but improved from previous
no leukocytosis.
Plan:
-- LRD
-- Resume home meds
-- HLIV
-- Pain mgmt: Tylenol, DC Toradol in favor of ibuprofen, Tramadol, DC Dilaudid
-- Abx completed on 09/21
-- OOB/ambulate
-- DVT: SQH, SCDs
Subjective Data
-
Date of Service: September 23, 2024
Did not do well with dinneer, didn't like the food, per nursing had some nausea/small emesis. This am she feels well and tolerated LRD for breakfast without issues. Passing flatus and BMs. Denies nausea this am.
Objective Data
-
Intake and Output
09/22/24 09/23/24 09/24/24
06:59 06:59 06:59
Intake Total 2400 / 2400 860 / 860
Balance 2400 / 2400 860 / 860
Intake:
Oral fluids 1440 / 1440 840 / 840
IV fluids (Total) 960 / 960 20 / 20
Other:
Number of approximated MODERATE 3 4 1
amounts of urine
Vital Signs
Temp Pulse Resp BP Pulse Ox
98.6 F 80 14 131/73 97
09/23/24 07:00 09/23/24 07:21 09/23/24 07:21 09/23/24 07:00 09/23/24 07:21
Lab Results
09/21/24 08:34
09/21/24 08:34
Calcium 9.5 mg/dl (8.4-10.2) 09/21/24 08:34
Phosphorus 2.9 mg/dl (2.5-4.5) 09/21/24 08:34
Magnesium 1.7 mg/dl (1.6-2.3) 09/21/24 08:34
Total Bilirubin 0.8 mg/dl (0.2-1.3) 09/15/24 12:22
AST 28 U/L (14-36) 09/15/24 12:22
ALT 28 U/L (0-35) 09/15/24 12:22
Alkaline Phosphatase 55 U/L (38-126) 09/15/24 12:22
Total Protein 6.6 g/dl (6.3-8.2) 09/15/24 12:22
Albumin 4.6 g/dl (3.5-5.0) 09/15/24 12:22
Physical Exam
-
Gen: NAD
Abd: soft, minimal ttp, mild distention, incisions cdi
Patient has a conklin catheter: No
Patient has a central line: No
--- NOTE | 2024-09-23 10:27 | CM ---
Addendum entered by Mari Mcnally 09/23/24 16:17:
Patient's plan is to return to home with [facility] patient may stay at son's house, letter completed for patient's spouse.
Plan; Home with [facility]
Original Note:
Chart reviewed and per physician patient may benefit from skilled placement, pillowcase folder met with patient and son this am and will await physical therapy evaluation, options reviewed for skilled placement and referrals sent to [facility] for
[facility].
Plan; Await PT evaluation, referrals sent to [facility].
--- NOTE | 2024-09-23 11:22 | VNURNOTE ---
Shuttle Fitting Supervisor met with patient to discuss [facility] nurse/therapy, visits, schedule and homebound status. Patient refused Home Care services, stating 'I will not need that'.
[2024-09-23 11:55] VITALS: BP 124/63
[2024-09-23 15:00] VITALS: BP 133/66
[2024-09-23] MEDS: ULTRAM 50 MG PO (15:10)
--- NOTE | 2024-09-23 15:15 | PTCARENOTE ---
2/5- Patient reports multiple episodes of vomiting today. She states persistent nausea but didn't want to ask for Zofran. She states abdominal pain is now epigastric nausea and indigestion. Abd soft/Tender in Upper Quadrants; Round/distended but
not more severe than earlier assessment today; T=98.2; HR=89; BP= 145/78. Notified Physician. Administered Zofran and Tramadol as ordered. Continue to monitor.
--- NOTE | 2024-09-23 15:57 | W.PN.UPDATE ---
Update Note
Progress Note Update
Did well with breakfast, after lunch had vomiting.
Diet back to cld.
CT A/P and labwork ordered
[2024-09-23 16:29] LABS: Hematocrit 35.7 % (37.0-47.0); Mean Corp Hgb Conc. 33.6 g/dL (33.0-37.0); Mean Corpuscular Hgb 32.2 pg (27.0-31.0); Mean Corpuscular Volume 95.7 fL (81.0-99.0); Mean Platelet Volume 9.7 fL (7.4-10.4); Platelet Count 455 10^3/uL (130-400); Red Blood Cell Count 3.73 10^6/uL (4.20-5.40); Red Cell Dist. Width 12.1 % (11.5-14.5); White Blood Cell Count 6.3 10^3/uL (4.8-10.8)
[2024-09-23 16:57] LABS: Blood Urea Nitrogen 9 mg/dl (7-17); Calcium 10.3 mg/dl (8.4-10.2); Carbon Dioxide 26 mmol/L (22-30); Chloride 103 mmol/L (98-107); Estimated Creatinine Clearance 58 ml/min; Glucose 97 mg/dl (70-99); Potassium 4.1 mmol/L (3.5-5.1); Sodium 140 mmol/L (135-145); eGFR > 60.00
--- NOTE | 2024-09-23 18:43 | PTCARENOTE ---
2/5- Patient refuses NGT insertion at this time. She wants to see how the medication will work for nausea. She states she is already feeling pain relief from the Dilaudid administered. Educated patient on reason for NGT, risks and questions for
Physician. She verbalized understanding but still refuses at this time. Notified Physician.
[2024-09-23] MEDS: COMPAZINE 10 MG IV (19:13)
[2024-09-23 23:14] VITALS: BP 113/68; BP 121/64; BP 98/59; PULSE 105; PULSE 93; PULSE 94
[2024-09-24] MEDS: COMPAZINE 10 MG IV ×2 (01:19→08:05)
[2024-09-24] MEDS: DILAUDID 0.5 MG IV ×3 (05:00→11:37)
[2024-09-24] MEDS: ZOFRAN 4 MG IV ×2 (06:12→19:44)
[2024-09-24] MEDS: OMNIPAQUE 50 ML PO (06:15)
[2024-09-24 07:00] VITALS: BP 110/65; BP 112/63; BP 98/55; PULSE 103; PULSE 98
[2024-09-24] MEDS: STRIVERDI RESPIMAT 2 PUFF INH (07:46)
[2024-09-24] MEDS: SPIRIVA RESPIMAT 2.5 MCG 2 PUFF INH (07:46)
[2024-09-24] MEDS: HEPARIN 5000 UNITS SC ×2 (08:04→19:38)
[2024-09-24] MEDS: NORVASC PO ×2 (08:07→08:39)
[2024-09-24] MEDS: FOLVITE 1 MG PO (08:07)
[2024-09-24] MEDS: WELLBUTRIN XL (24 hour extended release) 300 MG PO (08:07)
[2024-09-24 10:13] LABS: Phosphorus 4.8 mg/dl (2.5-4.5)
--- NOTE | 2024-09-24 12:22 | W.PN.GS2 ---
Today's Communication / Plan
-
Multimodal pain meds
CLD
IVF
PT
Assessment / Plan
-
Assessment: 79 y/o female POD#8 s/p lap appy with post-op ileus
AFVSS
Taking dilaudid preferentially but not having severe pain
Post-op ileus related to degree of appendicitis slowly improving. Passing flatus with several stools, some distention persists, vomiting yesterday after LRD
no leukocytosis.
CT A/P today without fluid collections, without free air, there are dilated lops of mid small bowel with sb feces sign without pneumatosis or PV gas, descending colon decompressed but with air and fluid down to rectum, ascending colon and transverse
colon with fluid and air, gradual taper of small bowel without clear transition point on my interpretation (formal read pending)
Plan:
-- CLD, avoid carbonation
-- Cont home meds
-- Restart MIVF in light of diminished PO intake
-- Pain mgmt: Tylenol, toradol, oxy
-- Abx completed on 09/21
-- OOB/ambulate
-- PT seeing
-- DVT: SQH, SCDs
Subjective Data
-
Date of Service: September 24, 2024
AFVSS, vomiting yesterday, continues with frequent liquid stools, pain about the same, ambulating, stella sips of clears, nausea improved today
Objective Data
-
Intake and Output
09/23/24 09/24/24 09/25/24
06:59 06:59 06:59
Intake Total 860 / 860 120 / 120
Balance 860 / 860 120 / 120
Intake:
Oral fluids 840 / 840 120 / 120
IV fluids (Total) 20 / 20
Other:
Number of approximated SMALL 3 1
amounts of urine
Number of approximated MODERATE 4 1
amounts of urine
Number of unmeasured liquid
stools
Rectum 4
Vital Signs
Temp Pulse Resp BP Pulse Ox
98.4 F 94 16 98/55 90
09/24/24 07:00 09/24/24 07:50 09/24/24 07:50 09/24/24 08:39 09/24/24 07:50
Lab Results
09/23/24 16:15
09/23/24 16:15
Calcium 10.3 mg/dl (8.4-10.2) H 09/23/24 16:15
Phosphorus 4.8 mg/dl (2.5-4.5) H 09/24/24 08:31
Magnesium 2.0 mg/dl (1.6-2.3) 09/24/24 08:31
Total Bilirubin 0.8 mg/dl (0.2-1.3) 09/15/24 12:22
AST 28 U/L (14-36) 09/15/24 12:22
ALT 28 U/L (0-35) 09/15/24 12:22
Alkaline Phosphatase 55 U/L (38-126) 09/15/24 12:22
Total Protein 6.6 g/dl (6.3-8.2) 09/15/24 12:22
Albumin 4.6 g/dl (3.5-5.0) 09/15/24 12:22
Physical Exam
-
Gen: NAD
Abd: soft, more distended than yesterday, mild ttp diffusely, incisions cdi
Patient has a conkiln catheter: No
Patient has a central line: No
[2024-09-24] MEDS: D5/0.45%NSS with KCL 20 MEQ 1000 IV (13:06)
[2024-09-24 15:00] VITALS: BP 125/62
[2024-09-24] MEDS: TORADOL 15 MG IV (19:44)
[2024-09-24 23:00] VITALS: BP 106/55; BP 114/58; BP 117/65; PULSE 87; PULSE 90; PULSE 92
[2024-09-25] MEDS: D5/0.45%NSS with KCL 20 MEQ 1000 IV ×3 (00:31→20:29)
[2024-09-25] MEDS: ROXICODONE 5 MG PO (06:11)
[2024-09-25 06:37] VITALS: BMI 22.3
[2024-09-25] MEDS: STRIVERDI RESPIMAT 2 PUFF INH (07:18)
[2024-09-25] MEDS: SPIRIVA RESPIMAT 2.5 MCG 2 PUFF INH (07:18)
[2024-09-25 07:24] VITALS: BP 131/58
[2024-09-25] MEDS: HEPARIN 5000 UNITS SC ×2 (08:01→20:28)
[2024-09-25] MEDS: WELLBUTRIN XL (24 hour extended release) 300 MG PO (08:01)
[2024-09-25] MEDS: FOLVITE 1 MG PO (08:01)
[2024-09-25] MEDS: NORVASC 10 MG PO (08:01)
--- NOTE | 2024-09-25 09:15 | W.PN.GS2 ---
Addendum entered and electronically signed by Vamshi Tovar MD 09/25/24 10:21:
Son Delonte @ [phone] updated by phone. All questions answered
Addendum entered and electronically signed by Vamshi Tovar MD 09/25/24 10:13:
I saw and examined the patient.
The Scratch Brusher's note was reviewed and I agree with the note.
Comment: Feeling much better, no n/v overnight, pain controlled on PO meds, ambulating, still c/o freq liquid stools. Cont IVF in light of JESSICA. OK to DC when Cr returns to baseline. Exam approp, minimal ttp, moderate distention noted, pt reports
this is baseline for her - 'I'm always real bloated.' Fulls today, would adv to LRD tomorrow and obs for the day to ensure tolerance prior to DC.
Original Note:
Today's Communication / Plan
-
Full liquids
Assessment / Plan
-
Assessment: 79 y/o female POD#9 s/p lap appy with post-op ileus. -- Abx completed on 09/[address] A/P 07/24/24 without fluid collections, without free air, there are dilated lops of mid small bowel with sb feces sign without pneumatosis or PV gas, descending colon decompressed but with air and fluid down to rectum, ascending colon and
transverse colon with fluid and air, gradual taper of small bowel without clear transition point on my interpretation (formal read with ? pSBO, likely early adhesive)
JESSICA noted on labs today, suspect secondary to hypovolemia
Passing flatus with several stools since CT study, no further n/v. Mildly distended but patient notes that her abdomen seems at baseline
Plan:
-- Advance to FLD with supplements
-- Cont home meds
-- Continue IVF
-- Labs in AM
-- Pain mgmt: Tylenol, oxy. D/C Nsaids in light of rising cr
-- OOB/ambulate
-- PT following
-- DVT: SQH, SCDs
Subjective Data
-
Date of Service: September 25, 2024
Patient seen and examined at bedside. Denies n/v. Passing flatus and with loose stool overnight. Tired of the hospital and not being able to move around much. Feeling like being more mobile today.
Objective Data
-
Intake and Output
09/24/24 09/25/24 09/26/24
06:59 06:59 06:59
Intake Total 120 / 120 600 / 600
Balance 120 / 120 600 / 600
Intake:
Oral fluids 120 / 120
IV fluids (Total) 600 / 600
Other:
Number of approximated SMALL 3 3
amounts of urine
Number of approximated MODERATE 1
amounts of urine
How many times incontinent 1
SMALL amount urine
Number of unmeasured liquid
stools
Rectum 4 2
Vital Signs
Temp Pulse Resp BP Pulse Ox
98.5 F 77 18 131/58 93
09/25/24 07:24 09/25/24 07:24 09/25/24 07:24 09/25/24 07:24 09/25/24 07:24
Lab Results
09/23/24 16:15
Calcium 10.3 mg/dl (8.4-10.2) H 09/23/24 16:15
Phosphorus 4.8 mg/dl (2.5-4.5) H 09/24/24 08:31
Magnesium 2.0 mg/dl (1.6-2.3) 09/24/24 08:31
Total Bilirubin 0.8 mg/dl (0.2-1.3) 09/15/24 12:22
AST 28 U/L (14-36) 09/15/24 12:22
ALT 28 U/L (0-35) 09/15/24 12:22
Alkaline Phosphatase 55 U/L (38-126) 09/15/24 12:22
Total Protein 6.6 g/dl (6.3-8.2) 09/15/24 12:22
Albumin 4.6 g/dl (3.5-5.0) 09/15/24 12:22
Physical Exam
-
Gen: NAD
Abd: soft, protuberant, nontender, incisions cdi
[2024-09-25 09:17] LABS: Blood Urea Nitrogen 17 mg/dl (7-17); Calcium 9.4 mg/dl (8.4-10.2); Carbon Dioxide 20 mmol/L (22-30); Chloride 104 mmol/L (98-107); Estimated Creatinine Clearance 36 ml/min; Glucose 115 mg/dl (70-99); Potassium 4.1 mmol/L (3.5-5.1); Sodium 134 mmol/L (135-145); eGFR 42.09
--- NOTE | 2024-09-25 14:33 | CM ---
Chart reviewed and plan is to home when stable.
Plan; Home at discharge patient has refused home care services.
[2024-09-25 16:23] VITALS: BP 128/67
[2024-09-25] MEDS: PROTONIX 20 MG PO (20:28)
[2024-09-25 23:15] VITALS: BP 123/72
[2024-09-26 06:00] VITALS: BP 134/64; BP 138/68; BP 141/65
[2024-09-26] MEDS: D5/0.45%NSS with KCL 20 MEQ 1000 IV (06:07)
[2024-09-26 07:04] VITALS: BP 130/64
[2024-09-26 07:18] LABS: Hematocrit 32.1 % (37.0-47.0); Hemoglobin 10.3 g/dL (12.0-16.0); Mean Corp Hgb Conc. 32.1 g/dL (33.0-37.0); Mean Corpuscular Hgb 31.5 pg (27.0-31.0); Mean Corpuscular Volume 98.2 fL (81.0-99.0); Platelet Count 464 10^3/uL (130-400); Red Blood Cell Count 3.27 10^6/uL (4.20-5.40); White Blood Cell Count 7.9 10^3/uL (4.8-10.8)
[2024-09-26 07:31] LABS: Blood Urea Nitrogen 7 mg/dl (7-17); Calcium 9.3 mg/dl (8.4-10.2); Carbon Dioxide 18 mmol/L (22-30); Chloride 108 mmol/L (98-107); Estimated Creatinine Clearance 58 ml/min; Glucose 97 mg/dl (70-99); Potassium 4.1 mmol/L (3.5-5.1); Sodium 136 mmol/L (135-145); eGFR > 60.00
[2024-09-26] MEDS: SPIRIVA RESPIMAT 2.5 MCG 2 PUFF INH (08:22)
[2024-09-26] MEDS: STRIVERDI RESPIMAT 2 PUFF INH (08:22)
[2024-09-26] MEDS: WELLBUTRIN XL (24 hour extended release) 300 MG PO (08:58)
[2024-09-26] MEDS: PROTONIX 20 MG PO (08:58)
[2024-09-26] MEDS: HEPARIN 5000 UNITS SC ×2 (08:58→19:36)
[2024-09-26] MEDS: NORVASC 10 MG PO (08:58)
[2024-09-26] MEDS: FOLVITE 1 MG PO (08:58)
--- NOTE | 2024-09-26 09:55 | W.PN.GS2 ---
Addendum entered and electronically signed by Devonte Fofana MD 09/26/24 11:10:
Patient seen and examined. Agree with assessment plan as documented below.
No complaints. Tolerated full liquids without nausea or vomiting. Continues to pass flatus and stool. Ambulating. Voiding.
Gen: NAD
Abd: soft, NT, obese, stable distension, non-peritoneal, incisions c/d/i - no erythema, ecchymosis or drainage
Patient is a 79 y/o female POD#10 s/p lap appy
CT A/P 07/24/24 without fluid collections, without free air, there are dilated lops of mid small bowel with sb feces sign without pneumatosis or PV gas, descending colon decompressed but with air and fluid down to rectum, ascending colon and
transverse colon with fluid and air, gradual taper of small bowel without clear transition point on my interpretation (formal read with ? pSBO, likely early adhesive)
AFVSS
JESSICA noted on labs yesterday, resolved with IVF
Issues with postoperative ileus, slow resolution. Passing flatus with multiple stools since CT study, no further n/v. Mildly distended but patient notes that her abdomen seems at baseline. Tolerating diet
Plan:
-- Advance to LRD
-- Cont home meds
-- DC IVF now that she is tolerating PO
-- Labs in AM
-- Pain mgmt: Tylenol, Oxy. Hold NSAIDs given prior JESSICA
-- OOB/ambulate
-- PT following, cleared for return to home
-- DVT: SQH, SCDs
Tentative d/c tomorrow if tolerating diet
Original Note:
Today's Communication / Plan
-
Advance diet
Assessment / Plan
-
Assessment: 79 y/o female POD#10 s/p lap appy with post-op ileus. -- Abx completed on 09/21
[address] A/P 07/24/24 without fluid collections, without free air, there are dilated lops of mid small bowel with sb feces sign without pneumatosis or PV gas, descending colon decompressed but with air and fluid down to rectum, ascending colon and
transverse colon with fluid and air, gradual taper of small bowel without clear transition point on my interpretation (formal read with ? pSBO, likely early adhesive)
JESSICA noted on labs yesterday, resolved with IVF
Passing flatus with multiple stools since CT study, no further n/v. Mildly distended but patient notes that her abdomen seems at baseline.
Tolerating diet
Plan:
-- Advance to LRD
-- Cont home meds
-- d/c IVF now that she is tolerating PO
-- Labs in AM
-- Pain mgmt: Tylenol, oxy. Hold NSAIDs given prior JESSICA
-- OOB/ambulate
-- PT following, cleared for return to home
-- DVT: SQH, SCDs
Tentative d/c tomorrow if tolerating diet
Subjective Data
-
Date of Service: September 26, 2024
Patient seen and examined at bedside with Dr. Fofana. Denies n/v. Passing flatus/stools. Minimal discomfort.
Objective Data
-
Intake and Output
09/25/24 09/26/24 09/27/24
06:59 06:59 06:59
Intake Total 600 / 600 3380 / 3380
Balance 600 / 600 3380 / 3380
Intake:
Oral fluids 1680 / 1680
IV fluids (Total) 600 / 600 1700 / 1700
Other:
Number of approximated SMALL 3
amounts of urine
Number of approximated MODERATE 6
amounts of urine
How many times incontinent 1 1
SMALL amount urine
Number of unmeasured liquid
stools
Rectum 2
Vital Signs
Temp Pulse Resp BP Pulse Ox
98.3 F 77 16 130/64 94
09/26/24 07:04 02/08/25 08:29 09/26/24 08:29 09/26/24 07:04 09/26/24 08:29
Lab Results
09/26/24 06:16
09/26/24 06:16
Calcium 9.3 mg/dl (8.4-10.2) 09/26/24 06:16
Phosphorus 4.8 mg/dl (2.5-4.5) H 09/24/24 08:31
Magnesium 2.0 mg/dl (1.6-2.3) 09/24/24 08:31
Total Bilirubin 0.8 mg/dl (0.2-1.3) 09/15/24 12:22
AST 28 U/L (14-36) 09/15/24 12:22
ALT 28 U/L (0-35) 09/15/24 12:22
Alkaline Phosphatase 55 U/L (38-126) 09/15/24 12:22
Total Protein 6.6 g/dl (6.3-8.2) 09/15/24 12:22
Albumin 4.6 g/dl (3.5-5.0) 09/15/24 12:22
Physical Exam
-
Gen: NAD
Abd: soft, protuberant, nontender, incisions cdi
[2024-09-26] MEDS: TUMS CHEWABLE TABLET 200 MG PO (12:44)
[2024-09-26 15:12] VITALS: BP 146/68
[2024-09-26 19:55] VITALS: BP 149/86; BP 152/79; BP 155/80; PULSE 87; PULSE 88; PULSE 93
[2024-09-26 23:44] VITALS: BP 132/70
[2024-09-27 07:01] VITALS: BP 143/73; BP 149/79; BP 150/71
[2024-09-27] MEDS: FOLVITE 1 MG PO (07:36)
[2024-09-27] MEDS: WELLBUTRIN XL (24 hour extended release) 300 MG PO (07:36)
[2024-09-27] MEDS: NORVASC 10 MG PO (07:36)
[2024-09-27] MEDS: HEPARIN 5000 UNITS SC (07:36)
[2024-09-27] MEDS: PROTONIX 20 MG PO (07:43)
[2024-09-27] MEDS: TYLENOL 1000 MG PO (07:43)
[2024-09-27 08:00] VITALS: BP 150/71
[2024-09-27 08:01] VITALS: BP 143/73; BP 149/79; BP 150/71
[2024-09-27] MEDS: STRIVERDI RESPIMAT 2 PUFF INH (08:03)
[2024-09-27] MEDS: SPIRIVA RESPIMAT 2.5 MCG 2 PUFF INH (08:03)
--- NOTE | 2024-09-27 10:15 | W.PN.GS2 ---
Addendum entered and electronically signed by Devonte Fofana MD 09/27/24 10:53:
Patient seen and examined. Agree with assessment plan as document below.
No complaints. No nausea or vomiting. Passing flatus and stools. No worsening abdominal pain or distention.
Gen: NAD
Abd: soft, NT, stable distension, non-peritoneal, incisions c/d/i - no ecchymosis, erythema,or drainage
Patient 79 y/o female POD#11 s/p lap appy
AFVSS
No repeat labs
Issues with post-op ileus, improved. Abx completed on 09/21. Stable from a dietary tolerance and GI standpoint over 24 hours.
Plan:
-- Continue LRD
-- Cont home meds
-- Tylenol prn for pain
-- OOB/ambulate
-- PT following, cleared for return to home
-- DVT: SQH, SCDs
-- DC today
Original Note:
Today's Communication / Plan
-
Dispo planning
Assessment / Plan
-
Assessment: 79 y/o female POD#11 s/p lap appy with post-op ileus. -- Abx completed on 09/21
AFVSS
Good bowel recovery, tolerating diet
Plan:
-- Continue LRD
-- Cont home meds
-- Tylenol prn for pain
-- OOB/ambulate
-- PT following, cleared for return to home
-- DVT: SQH, SCDs
Dispo planning
Subjective Data
-
Date of Service: September 27, 2024
Patient seen and examined at bedside with Dr. Fofana. Sitting at the side of the bed doing crossword puzzles. Denies pain. Diarrhea has resolved, having more formed stools. Denies n/v. Tolerating diet. Eager to go home.
Objective Data
-
Intake and Output
09/26/24 09/27/24 09/28/24
06:59 06:59 06:59
Intake Total 3380 / 3380 1080 / 1080
Balance 3380 / 3380 1080 / 1080
Intake:
Oral fluids 1680 / 1680 1080 / 1080
IV fluids (Total) 1700 / 1700
Other:
Number of approximated MODERATE 6 5
amounts of urine
How many times incontinent 1
SMALL amount urine
How many times incontinent 4
MODERATE amount urine
Vital Signs
Temp Pulse Resp BP Pulse Ox
98.1 F 76 16 150/71 94
09/27/24 08:00 09/27/24 08:08 09/27/24 08:08 09/27/24 08:00 09/27/24 08:08
Lab Results
09/26/24 06:16
09/26/24 06:16
Calcium 9.3 mg/dl (8.4-10.2) 09/26/24 06:16
Phosphorus 4.8 mg/dl (2.5-4.5) H 09/24/24 08:31
Magnesium 2.0 mg/dl (1.6-2.3) 09/24/24 08:31
Total Bilirubin 0.8 mg/dl (0.2-1.3) 09/15/24 12:22
AST 28 U/L (14-36) 09/15/24 12:22
ALT 28 U/L (0-35) 09/15/24 12:22
Alkaline Phosphatase 55 U/L (38-126) 09/15/24 12:22
Total Protein 6.6 g/dl (6.3-8.2) 09/15/24 12:22
Albumin 4.6 g/dl (3.5-5.0) 09/15/24 12:22
Physical Exam
-
Gen: NAD
Abd: soft, protuberant, nontender, incisions cdi
--- NOTE | 2024-09-27 11:48 | CM ---
Chart reviewed and patient is for discharge today, home no needs.
Plan; Home with spouse no needs.
--- NOTE | 2024-09-27 12:29 | W.DCSUMMARY ---
Discharge Summary
Discharge Data
Date of Admission: 09/17/24
Date of Discharge: 09/27/24
-
Pending Results: No
Hospital Course
Ms Dsouza presented through the ED with right lower quadrant pain with CT and exam consistent with acute appendicitis. She was taken to the OR for laparoscopic appendectomy with severely inflamed appendix with reactive adhesions and hyperemia with
peritonitis noted. She was continued on antibiotics in the immediate post operative period until post operative day 4. She had delayed return in bowel function post operatively with follow up imaging demonstrating no abscess. Once she passing flatus
and stools with good evidence of bowel recovery, diet was advanced and well tolerated. Pain was minimal prior to discharge and she was no longer requiring narcotic analgesics. She was followed by PT during her course of stay and cleared for return
to home. Outpatient follow up planned in the coming weeks.
Discharge Plan
-
Patient Disposition: Home (Routine Discharge)
Discharge Diagnosis/Procedures: acute appendicitis status post laparoscopic appendectomy
Condition: Good
Diet: No restrictions
Activity: No strenuous activity
Additional Activity: Do not lift over 15lbs for 2-3 weeks
Bathing Restrictions: OK to Shower
Wound Care: Allow skin glue to flake off on its own
Instructions: Appendectomy - Discharge instructions
Referrals:
Vamshi Tovar MD [Active] - in two to four weeks
Ade Flores DO [Family Provider] -
Prescriptions:
New
acetaminophen [Tylenol Extra Strength] 500 mg Tablet
1,000 mg PO Q6HPRN PRN (Reason: mild pain) 30 Days Qty: 1 0RF
Continued
atorvastatin [Lipitor] 80 mg Tablet
80 mg PO DAILY
meloxicam 15 mg Tablet
15 mg PO DAILY
amlodipine [Norvasc] 10 mg Tablet
10 mg PO DAILY
triamterene-hydrochlorothiazid 37.5-25 mg Tablet
1 tab PO DAILY
albuterol sulfate 90 mcg/actuation Hfa Aerosol Inhaler
2 puff INHALATION R Q6HPRN PRN (Reason: sob)
bupropion HCl [Wellbutrin XL] 300 mg Tablet Extended Release 24 Hr
300 mg PO DAILY
fenofibrate nanocrystallized [Tricor] 145 mg Tablet
145 mg PO DAILY
omeprazole 20 mg Tablet,Delayed Release (Dr/Ec)
20 mg PO DAILY
Anoro Ellipta 62.5-25 mcg/actuation Blister With Device
1 inh INHALATION R DAILY
Discharge Orders:
Discharge Patient (As Directed); Ordered 09/27/24
Ordered By: Jamila Cobb
Discharge Date and Time
Print Language: CZECH
== END 2024-09-27 13:06 | disposition home or self-care (01) | DRG 398 ==
LOC: 4 WEST ACU 10:09
PROVIDERS: Emergency Medicine; Nurse Practitioner Family; Nurse Practitioner Gerontology; Physician Assistant; Registered Nurse; Surgery; ADMITTING PHYSICIAN Surgery; EMERGENCY PHYSICIAN Emergency Medicine; FAMILY PHYSICIAN Family Medicine
PROC: 0DTJ4ZZ Resection of Appendix, Percutaneous Endoscopic Approach (ICD-10-PCS; 2024-09-16)
DX: K35.30 Acute appendicitis with localized peritonitis, without perforation or gangrene (principal); E87.1 Hypo-osmolality and hyponatremia; J98.11 Atelectasis; K56.7 Ileus, unspecified; K91.89 Other postprocedural complications and disorders of digestive system; N17.9 Acute kidney failure, unspecified; F17.210 Nicotine dependence, cigarettes, uncomplicated; Z66 Do not resuscitate
CPT/HCPCS: 88304; 70450; 74018; 74177; 80048; 80053; 81003; 81015; 82077; 82962; 83605; 83690; 83735; 84100; 85025; 85027; 86803; 87070; 87086; 87798; 93005; 94640; 96361; 96375; 97162; 97530; 99285; 99406; C1776; Q9967